=== PATIENT | male | born 1960 | race Asian ===

== ENCOUNTER 2018-05-22 07:31 | Emergency (ER) | payer MEDICAID ==
[~2018-05-22] VITALS: Ht 165.1 cm; Wt 55.0 kg
[~2018-05-22 07:31] MED LIST: FOLI-43 PO; GLIP5TAB12 PO; MULT-1146 MT; PROT40 MT; THIA100T72 PO
[2018-05-22] MEDS ORDERED: SODIUM CHLORIDE 0.9% 1,000 ML IV ONE (08:48)
[2018-05-22] MEDS ORDERED: TETANUS, DIPHTHERIA, PERTUSSIS VAC/PF 0.5ML (>7YR OLD) IM ONE (09:00)
[2018-05-22 09:07] LABS: BASOPHILS % 0.7 % (0.0-2.0); EOSINOPHILS % 1.7 % (0.0-5.0); HEMATOCRIT. 27.9 % (42.0-52.0); HEMOGLOBIN. 9.3 g/dL (14.0-18.0); LYMPHOCYTES % 15.5 % (20.0-50.0); MEAN CORPUSCULAR HEMOGLOBIN 30.9 pg (28.0-32.0); MEAN CORPUSCULAR VOLUME 92.7 fL (80.0-94.0); MEAN PLATELET VOLUME 7.4 fl (7.4-10.4); MONOCYTES % 8.5 % (2.0-8.0); NEUTROPHILS % 73.6 % (40.0-76.0); PLATELET 387 x1000/uL (130-400); RED BLOOD CELL COUNT 3.01 mill/uL (4.7-6.1); RED CELL DISTRIBUTION WIDTH 15.1 % (11.6-14.6)
[2018-05-22 09:11] LABS: CHLORIDE 114 mEq/L (98-107)
[2018-05-22 09:13] LABS: INR 1.5; PROTHROMBIN TIME 15.4 sec (9.4-11.6)
[2018-05-22 09:16] LABS: ETHANOL BLOOD < 10 mg/dL
[2018-05-22 09:44] LABS: CLARITY URINE CLEAR (CLEAR); COLOR URINE DARK YELLOW (YELLOW); KETONES URINE TRACE (NEGATIVE); LEUKOCYTE ESTERASE URINE NEGATIVE (NEGATIVE); NITRITE URINE NEGATIVE (NEGATIVE); OCCULT BLOOD URINE NEGATIVE (NEGATIVE); PROTEIN URINE NEGATIVE (NEGATIVE); SPECIFIC GRAVITY URINE 1.014 (1.005-1.030); UROBILINOGEN URINE 0.2 E.U./dL (0.2-1.0)
[2018-05-22 10:08] LABS: *AMPHETAMINES SCREEN URINE NEGATIVE (NEGATIVE); *BARBITURATES SCREEN URINE NEGATIVE (NEGATIVE); *BENZODIAZEPINES SCREEN URINE PRESUMTIVE POSITIVE (NEGATIVE); *COCAINE SCREEN URINE NEGATIVE (NEGATIVE)
[2018-05-22 10:10] LABS: CANNABINOID URINE SCREEN NEGATIVE (NEGATIVE); METHADONE URINE SCREEN NEGATIVE (NEGATIVE); OPIATES URINE SCREEN PRESUMTIVE POSITIVE (NEGATIVE); PHENCYCLIDINE URINE SCREEN NEGATIVE (NEGATIVE)
[2018-05-22] MEDS ORDERED: CHLORDIAZEPOXIDE 5 MG CAPSULE PO ONE (12:15)
[2018-05-22 13:09] VITALS: BP 112/82
== END 2018-05-22 13:37 | disposition home or self-care (01) ==
LOC: ER 07:50
DX: S01.81XA Laceration without foreign body of other part of head, initial encounter (principal); S01.111A Laceration without foreign body of right eyelid and periocular area, initial encounter; Z87.19 Personal history of other diseases of the digestive system; Z88.8 Allergy status to other drugs, medicaments and biological substances; Z93.3 Colostomy status; Z79.899 Other long term (current) drug therapy; W18.39XA Other fall on same level, initial encounter; Y93.89 Activity, other specified; Y92.89 Other specified places as the place of occurrence of the external cause; Y99.8 Other external cause status
CPT/HCPCS: 12011; 36415; 80053; 80305; 81003; 83690; 85025; 85610; 90471; 90715; 99284; G0482; J7030; Z7610

== ENCOUNTER 2018-08-06 18:00 | Inpatient (IN) | payer MEDICAID ==
[~2018-08-06] VITALS: Ht 167.6 cm; Wt 52.2 kg
[2018-08-06] MEDS ORDERED: ONDANSETRON HCL 4MG/2ML INJ IV STA (18:46)
[2018-08-06] MEDS ORDERED: SODIUM CHLORIDE 0.9% 1,000 ML IV ONE (18:46)
[2018-08-06] MEDS ORDERED: PANTOPRAZOLE SODIUM 40 MG/VIAL IV STA (18:46)
[2018-08-06 19:34] LABS: BASOPHILS % 0.2 % (0.0-2.0); HEMATOCRIT. 22.5 % (42.0-52.0); HEMOGLOBIN. 7.6 g/dL (14.0-18.0); LYMPHOCYTES % 18.1 % (20.0-50.0); MEAN CORPUSCULAR HEMOGLOBIN 32.8 pg (28.0-32.0); MEAN CORPUSCULAR VOLUME 97.3 fL (80.0-94.0); MEAN PLATELET VOLUME 8.3 fl (7.4-10.4); MONOCYTES % 6.7 % (2.0-8.0); PLATELET 177 x1000/uL (130-400); RED BLOOD CELL COUNT 2.31 mill/uL (4.7-6.1); RED CELL DISTRIBUTION WIDTH 17.2 % (11.6-14.6)
[2018-08-06 19:35] LABS: INR 1.4; PARTIAL THROMBOPLASTIN TIME 26.1 sec (23.4-31.0); PROTHROMBIN TIME 13.8 sec (9.1-11.1)
[2018-08-06 19:37] LABS: CHLORIDE 100 mEq/L (98-107); ETHANOL BLOOD < 10 mg/dL
[2018-08-06 19:56] LABS: BG BASE EXCESS -1.3 mmol/L (-2.0-2.0); BG CARBOXYHEMOGLOBIN 1.2 % (0.5-1.5); BG DEOXYHEMOGLOBIN 4.1 % (0.0-5.0); BG FRACTION INSPIRED OXYGEN 21; BG HCO3 ACT 21.8 mmol/L (22.0-26.0); BG METHEMOGLOBIN 0.3 % (0.0-1.5); BG OXYGEN SATURATION 95.8 % (92.0-98.5); BG OXYHEMOGLOBIN 94.4 % (94.0-97.0); BG PCO2 28.9 mmHg (35.0-45.0); BG PH 7.495 (7.350-7.450); BG PO2 85.8 mmHg (75.0-100.0); BG SAMPLE SITE RIGHT RADIAL; BG TOTAL HEMOGLOBIN 6.2 g/dL (12.0-18.0); BG VENT MODE ROOM AIR
[2018-08-06] MEDS ORDERED: PHYTONADIONE 10MG/ML AMP IM ONE (20:00)
[2018-08-06] MEDS ORDERED: OCTREOTIDE 1,000 MCG in SODIUM CHLORIDE 0.9% 100 ML IV ONE (20:00)
[2018-08-06] MEDS ORDERED: OCTREOTIDE ACETATE 50 MCG/ML 1ML IV ONE (20:00)
[2018-08-06] MEDS ORDERED: OCTREOTIDE 1,000 MCG in SODIUM CHLORIDE 0.9% 100 ML IV NR (22:15)
[2018-08-06] MEDS ORDERED: LORAZEPAM 2MG/ML CPJ IV ONE (22:30)
[2018-08-06] MEDS ORDERED: ONDANSETRON HCL 4MG/2ML INJ IV ONE (22:30)
[2018-08-06] MEDS ORDERED: IPRATROPIUM/ALBUTEROL 0.5-3(2.5)MG/3ML NEB INH PRN (23:45)
[2018-08-06] MEDS ORDERED: LORAZEPAM 2MG/ML CPJ IV PRN (23:45)
[2018-08-07] VITALS (13 sets, daily range): BP systolic 86–112; BP diastolic 51–74
[2018-08-07] MEDS ORDERED: PANTOPRAZOLE 80 MG in SODIUM CHLORIDE 0.9% 100 ML IV SCH (03:00)
[2018-08-07] MEDS: PANTOPRAZOLE 80 MG in SODIUM CHLORIDE 0.9% 100 ML IV SCH ×3 (03:11→21:20)
[2018-08-07] MEDS ORDERED: MVI, ADULT NO.1 10 ML, FOLIC ACID 1 MG, THIAMINE HCL 100 MG in SODIUM CHLORIDE 0.9% 1,0... IV NR ×4 (03:30)
[2018-08-07] MEDS: CHLORDIAZEPOXIDE 25MG CAPSULE PO SCH ×3 (05:35→21:20)
[2018-08-07 06:51] LABS: BASOPHILS % 0.2 % (0.0-2.0); EOSINOPHILS % 1.2 % (0.0-5.0); HEMOGLOBIN. 7.3 g/dL (14.0-18.0); LYMPHOCYTES % 27.5 % (20.0-50.0); MEAN CORPUSCULAR HEMOGLOBIN 33.6 pg (28.0-32.0); MEAN PLATELET VOLUME 8.4 fl (7.4-10.4); MONOCYTES % 9.9 % (2.0-8.0); NEUTROPHILS % 61.2 % (40.0-76.0); PLATELET 113 x1000/uL (130-400); RED BLOOD CELL COUNT 2.17 mill/uL (4.7-6.1); RED CELL DISTRIBUTION WIDTH 16.3 % (11.6-14.6)
[2018-08-07 06:59] LABS: HEMATOCRIT. 20.6 % (42.0-52.0)
[2018-08-07 07:40] LABS: CREATINE KINASE MB FRACTION 1.2 ng/mL (0.5-3.6)
[2018-08-07] MEDS ORDERED: MAGNESIUM 2 G PREMIX 50 ML IV ONE (09:15)
[2018-08-07] MEDS ORDERED: DEXTROSE 50% WATER 50ML SYRINGE IV PRN (09:15)
[2018-08-07 10:48] LABS: AMMONIA 86 uMol/L (<32)
[2018-08-07 10:59] LABS: T4 FREE 1.08 ng/dL (0.76-1.46)
[2018-08-07] MEDS ORDERED: MAGNESIUM SULFATE 2 GM in DEXTROSE 5% WATER 50 ML IV NR (11:00)
[2018-08-07] MEDS: OCTREOTIDE 1,000 MCG in SODIUM CHLORIDE 0.9% 100 ML IV SCH (11:12)
[2018-08-07] MEDS: BLOOD SUGAR DIAGNOSTIC STRIP TEST SCH ×3 (11:28→21:18)
[2018-08-07] MEDS: INSULIN LISPRO 100 UNITS/ML SUBCUT SCH ×3 (12:09→21:20)
[2018-08-07] MEDS ORDERED: LIDOCAINE HCL/PF 1% 10 MG/ML 5ML VIAL ONE (15:06)
[2018-08-07] MEDS ORDERED: PROPOFOL 200MG/20ML VIAL IV ONE ×2 (15:06→15:55)
[2018-08-07] MEDS ORDERED: PHENYLEPHRINE HCL 10 MG/ML 1ML (IV VIAL) IV ONE (15:13)
[2018-08-07] MEDS ORDERED: SODIUM CHLORIDE 0.9% 10ML VIAL ONE (15:14)
[2018-08-07 19:34] LABS: HEMATOCRIT 21.8 % (42.0-52.0); HEMOGLOBIN 7.4 g/dL (14.0-18.0)
[2018-08-07 19:44] LABS: CREATINE KINASE MB FRACTION 1.3 ng/mL (0.5-3.6)
[2018-08-07 23:48] LABS: HEMOGLOBIN 6.7 g/dL (14.0-18.0)
[2018-08-08] VITALS (17 sets, daily range): BP systolic 91–117; BP diastolic 54–77
[2018-08-08] MEDS: OCTREOTIDE 1,000 MCG in SODIUM CHLORIDE 0.9% 100 ML IV SCH ×2 (01:25→23:27)
[2018-08-08] MEDS: CHLORDIAZEPOXIDE 25MG CAPSULE PO SCH ×3 (05:47→21:05)
[2018-08-08] MEDS: BLOOD SUGAR DIAGNOSTIC STRIP TEST SCH ×4 (05:53→21:05)
[2018-08-08 06:49] LABS: BASOPHILS % 0.5 % (0.0-2.0); EOSINOPHILS % 5.7 % (0.0-5.0); HEMATOCRIT. 23.3 % (42.0-52.0); HEMOGLOBIN. 8.1 g/dL (14.0-18.0); LYMPHOCYTES % 24.4 % (20.0-50.0); MEAN CORPUSCULAR HEMOGLOBIN 32.8 pg (28.0-32.0); MEAN CORPUSCULAR VOLUME 93.9 fL (80.0-94.0); MEAN PLATELET VOLUME 8.2 fl (7.4-10.4); MONOCYTES % 9.1 % (2.0-8.0); NEUTROPHILS % 60.3 % (40.0-76.0); PLATELET 114 x1000/uL (130-400); RED BLOOD CELL COUNT 2.48 mill/uL (4.7-6.1); RED CELL DISTRIBUTION WIDTH 15.9 % (11.6-14.6)
[2018-08-08 07:08] LABS: AMMONIA 109 uMol/L (<32)
[2018-08-08] MEDS: INSULIN LISPRO 100 UNITS/ML SUBCUT SCH ×4 (07:20→21:00)
[2018-08-08 08:04] LABS: CHLORIDE 106 mEq/L (98-107)
[2018-08-08] MEDS: PROPRANOLOL HCL 10MG TABLET PO SCH (09:00)
[2018-08-08] MEDS: PANTOPRAZOLE 80 MG in SODIUM CHLORIDE 0.9% 100 ML IV SCH ×2 (09:16→19:23)
[2018-08-09] VITALS (9 sets, daily range): BP systolic 93–142; BP diastolic 54–77
[2018-08-09] MEDS ORDERED: POTASSIUM CHLORIDE 20MEQ TABLET SR PO NR (00:15)
[2018-08-09] MEDS: PANTOPRAZOLE 80 MG in SODIUM CHLORIDE 0.9% 100 ML IV SCH (04:39)
[2018-08-09] MEDS: CHLORDIAZEPOXIDE 25MG CAPSULE PO SCH ×2 (05:38→13:05)
[2018-08-09] MEDS: BLOOD SUGAR DIAGNOSTIC STRIP TEST SCH ×2 (06:12→12:27)
[2018-08-09] MEDS: INSULIN LISPRO 100 UNITS/ML SUBCUT SCH ×2 (06:37→12:27)
[2018-08-09 06:41] LABS: BASOPHILS % 0.4 % (0.0-2.0); EOSINOPHILS % 8.3 % (0.0-5.0); HEMATOCRIT. 25.9 % (42.0-52.0); LYMPHOCYTES % 26.5 % (20.0-50.0); MEAN CORPUSCULAR HEMOGLOBIN 33.4 pg (28.0-32.0); MEAN CORPUSCULAR VOLUME 95.9 fL (80.0-94.0); MEAN PLATELET VOLUME 7.7 fl (7.4-10.4); MONOCYTES % 8.7 % (2.0-8.0); NEUTROPHILS % 56.1 % (40.0-76.0); PLATELET 127 x1000/uL (130-400)
[2018-08-09 07:20] LABS: CHLORIDE 109 mEq/L (98-107)
[2018-08-09] MEDS: PROPRANOLOL HCL 10MG TABLET PO SCH (08:19)
[2018-08-09] MEDS ORDERED: PROP10TA10 PO (11:05)
== END 2018-08-09 15:25 | disposition home or self-care (01) | DRG 280 ==
LOC: ER 18:00 → 3WST 19:58 → EDBEDREQ 20:05 → EDBEDREQTM 20:05 → ENRESERV 20:15
PROVIDERS: ADMIT Internal Medicine; ATTEND Internal Medicine
PROC: 30233N1 Transfusion of Nonautologous Red Blood Cells into Peripheral Vein, Percutaneous Approach (ICD-10-PCS; 2018-08-06)
PROC: 06L38CZ Occlusion of Esophageal Vein with Extraluminal Device, Via Natural or Artificial Opening Endoscopic (ICD-10-PCS; principal; 2018-08-07 13:00)
DX: K70.30 Alcoholic cirrhosis of liver without ascites (principal); E43 Unspecified severe protein-calorie malnutrition; I85.11 Secondary esophageal varices with bleeding; D68.9 Coagulation defect, unspecified; K76.6 Portal hypertension; E83.42 Hypomagnesemia; K57.90 Diverticulosis of intestine, part unspecified, without perforation or abscess without bleeding; D53.9 Nutritional anemia, unspecified; E11.9 Type 2 diabetes mellitus without complications; F10.239 Alcohol dependence with withdrawal, unspecified; I10 Essential (primary) hypertension; K64.8 Other hemorrhoids; K31.9 Disease of stomach and duodenum, unspecified; K44.9 Diaphragmatic hernia without obstruction or gangrene; K57.30 Diverticulosis of large intestine without perforation or abscess without bleeding; K76.0 Fatty (change of) liver, not elsewhere classified; N28.9 Disorder of kidney and ureter, unspecified; Z79.84 Long term (current) use of oral hypoglycemic drugs; Z88.8 Allergy status to other drugs, medicaments and biological substances; Z79.899 Other long term (current) drug therapy; Z68.1 Body mass index [BMI] 19.9 or less, adult
CPT/HCPCS: 36415; 36600; 71045; 80048; 80061; 82105; 82140; 82375; 82550; 82553; 82805; 82962; 83540; 83550; 83735; 83880; 84439; 84443; 84481; 84484; 85014; 85018; 85044; 86850; 86900; 86920; 93005; 93970; 96361; 96372; 96374; 96375; 99291; A4216; C1893; C9113; G0482; J1815; J2060; J2354; J2370; J2405; J2704; J3411; J3430; J3475; J3490; J7030; J7040; J7050; J7060; P9016

== ENCOUNTER 2018-12-09 05:11 | Inpatient (IN) | payer MEDICAID ==
[~2018-12-09] VITALS: Ht 170.2 cm; Wt 58.6 kg
[~2018-12-09 05:11] MED LIST changes: +PROP10TA10 PO
[2018-12-09] MEDS ORDERED: SODIUM CHLORIDE 0.9% 1,000 ML IV ONE ×2 (06:18→08:30)
[2018-12-09 06:37] LABS: CHLORIDE 102 mEq/L (98-107)
[2018-12-09 06:41] LABS: ETHANOL BLOOD < 10 mg/dL
[2018-12-09] MEDS ORDERED: DEXTROSE 50% WATER 50ML SYRINGE IV ONE (06:45)
[2018-12-09 06:48] LABS: BASOPHILS % 0.2 % (0.0-2.0); EOSINOPHILS % 1.5 % (0.0-5.0); HEMATOCRIT. 37.7 % (42.0-52.0); HEMOGLOBIN. 12.9 g/dL (14.0-18.0); LYMPHOCYTES % 9.5 % (20.0-50.0); MEAN CORPUSCULAR HEMOGLOBIN 32.6 pg (28.0-32.0); MEAN CORPUSCULAR VOLUME 95.1 fL (80.0-94.0); MEAN PLATELET VOLUME 8.1 fl (7.4-10.4); MONOCYTES % 11.3 % (2.0-8.0); NEUTROPHILS % 77.5 % (40.0-76.0); PLATELET 131 x1000/uL (130-400); RED BLOOD CELL COUNT 3.96 mill/uL (4.7-6.1); RED CELL DISTRIBUTION WIDTH 14.2 % (11.6-14.6)
[2018-12-09 08:51] LABS: CLARITY URINE CLEAR (CLEAR); COLOR URINE YELLOW (YELLOW); KETONES URINE NEGATIVE (NEGATIVE); LEUKOCYTE ESTERASE URINE NEGATIVE (NEGATIVE); NITRITE URINE NEGATIVE (NEGATIVE); OCCULT BLOOD URINE 1+ (NEGATIVE); PROTEIN URINE TRACE (NEGATIVE); SPECIFIC GRAVITY URINE 1.011 (1.005-1.030); UROBILINOGEN URINE 0.2 E.U./dL (0.2-1.0)
[2018-12-09 09:39] LABS: *COCAINE SCREEN URINE NEGATIVE (NEGATIVE); OPIATES URINE SCREEN NEGATIVE (NEGATIVE)
[2018-12-09 09:41] LABS: CANNABINOID URINE SCREEN NEGATIVE (NEGATIVE); METHADONE URINE SCREEN NEGATIVE (NEGATIVE)
[2018-12-09 09:42] LABS: *BENZODIAZEPINES SCREEN URINE PRESUMTIVE POSITIVE (NEGATIVE)
[2018-12-09 09:43] LABS: PHENCYCLIDINE URINE SCREEN NEGATIVE (NEGATIVE)
[2018-12-09 09:45] LABS: *AMPHETAMINES SCREEN URINE NEGATIVE (NEGATIVE); *BARBITURATES SCREEN URINE NEGATIVE (NEGATIVE)
[2018-12-09] MEDS ORDERED: ONDANSETRON HCL 4MG/2ML INJ IV NR (10:15)
[2018-12-09] MEDS ORDERED: LACTULOSE 20G/30ML UDC PO NR ×2 (10:15→22:00)
[2018-12-09] MEDS ORDERED: IPRATROPIUM/ALBUTEROL 0.5-3(2.5)MG/3ML NEB INH PRN (14:30)
[2018-12-09] MEDS ORDERED: DIPHENHYDRAMINE 50MG/ML VIAL IV PRN (14:30)
[2018-12-09 15:17] LABS: PHOSPHORUS 1.9 mg/dL (2.5-4.9)
[2018-12-09] MEDS ORDERED: RIFAXIMIN 550 MG TABLET PO NR (21:30)
[2018-12-09] MEDS ORDERED: MORPHINE SULFATE 4 MG/ML CPJ (NOT FOR IM USE) IV PRN (21:35)
[2018-12-09 22:29] VITALS: BP 151/97
[2018-12-09 23:02] VITALS: BP 124/92
[2018-12-10] VITALS (12 sets, daily range): BP systolic 104–138; BP diastolic 70–95
[2018-12-10] MEDS ORDERED: POTASSIUM CHLORIDE INJ 40 MEQ in DEXT 5% WATER 500 ML IV SCH ×2
[2018-12-10] MEDS ORDERED: FERR325T6 PO (01:41)
[2018-12-10] MEDS ORDERED: HYDR25TA MT (01:41)
[2018-12-10] MEDS ORDERED: FURO20TA4 MT (01:41)
[2018-12-10] MEDS ORDERED: MAGN400T26 MT (01:41)
[2018-12-10] MEDS: LACTULOSE 20G/30ML UDC PO SCH ×3 (06:12→21:49)
[2018-12-10 06:46] LABS: BASOPHILS % 0.4 % (0.0-2.0); EOSINOPHILS % 10.3 % (0.0-5.0); HEMATOCRIT. 37.1 % (42.0-52.0); HEMOGLOBIN. 12.5 g/dL (14.0-18.0); LYMPHOCYTES % 24.1 % (20.0-50.0); MEAN CORPUSCULAR HEMOGLOBIN 32.2 pg (28.0-32.0); MEAN CORPUSCULAR VOLUME 95.8 fL (80.0-94.0); MEAN PLATELET VOLUME 7.8 fl (7.4-10.4); MONOCYTES % 9.8 % (2.0-8.0); NEUTROPHILS % 55.4 % (40.0-76.0); PLATELET 111 x1000/uL (130-400); RED BLOOD CELL COUNT 3.87 mill/uL (4.7-6.1); RED CELL DISTRIBUTION WIDTH 14.3 % (11.6-14.6)
[2018-12-10 07:00] LABS: CHLORIDE 103 mEq/L (98-107)
[2018-12-10 07:08] LABS: LDL CHOLESTEROL 89 mg/dL (5-100)
[2018-12-10 07:10] LABS: HDL CHOLESTEROL 108 mg/dL (40-59)
[2018-12-10] MEDS ORDERED: DEXTROSE 50% WATER 50ML SYRINGE IV PRN (07:30)
[2018-12-10] MEDS: INSULIN LISPRO 100 UNITS/ML SUBCUT SCH ×4 (08:05→20:28)
[2018-12-10] MEDS ORDERED: PNEUMOCOCCAL 23-VAL P-SAC VAC 0.5 ML IM ONE (09:00)
[2018-12-10] MEDS ORDERED: RIFAXIMIN 550 MG TABLET PO SCH (09:00)
[2018-12-10] MEDS: SODIUM CHLORIDE 0.9% 1,000 ML IV SCH (11:06)
[2018-12-10] MEDS: BLOOD SUGAR DIAGNOSTIC STRIP TEST SCH ×3 (11:54→20:20)
[2018-12-10] MEDS ORDERED: SODIUM CHLORIDE 0.9% 250 ML IV ONE (16:30)
[2018-12-10] MEDS: PROPRANOLOL HCL 20MG TABLET PO SCH (20:26)
[2018-12-11] VITALS (9 sets, daily range): BP systolic 110–145; BP diastolic 43–98
[2018-12-11] MEDS: BLOOD SUGAR DIAGNOSTIC STRIP TEST SCH ×2 (06:08→12:00)
[2018-12-11] MEDS: SODIUM CHLORIDE 0.9% 1,000 ML IV SCH (06:08)
[2018-12-11] MEDS: LACTULOSE 20G/30ML UDC PO SCH ×2 (06:08→13:37)
[2018-12-11 07:04] LABS: BASOPHILS % 0.2 % (0.0-2.0); EOSINOPHILS % 7.8 % (0.0-5.0); HEMATOCRIT. 35.7 % (42.0-52.0); HEMOGLOBIN. 12.2 g/dL (14.0-18.0); MEAN CORPUSCULAR HEMOGLOBIN 32.8 pg (28.0-32.0); MEAN CORPUSCULAR VOLUME 95.6 fL (80.0-94.0); MEAN PLATELET VOLUME 7.8 fl (7.4-10.4); PLATELET 122 x1000/uL (130-400); RED BLOOD CELL COUNT 3.74 mill/uL (4.7-6.1); RED CELL DISTRIBUTION WIDTH 13.9 % (11.6-14.6)
[2018-12-11 07:07] LABS: CHLORIDE 106 mEq/L (98-107)
[2018-12-11] MEDS: INSULIN LISPRO 100 UNITS/ML SUBCUT SCH ×2 (07:20→12:00)
[2018-12-11] MEDS: PROPRANOLOL HCL 20MG TABLET PO SCH (08:46)
[2018-12-11] MEDS ORDERED: RIFAXIMIN 550 MG TABLET PO SCH (09:00)
[2018-12-11] MEDS ORDERED: LACT10SO7 PO (13:06)
== END 2018-12-11 14:40 | disposition home or self-care (01) | DRG 279 ==
LOC: ER 06:21 → 3WST 08:26 → EDBEDREQSVC 08:29 → EDBEDREQ 08:29 → ENRESERV 21:11
PROVIDERS: ADMIT Internal Medicine; ATTEND Internal Medicine
DX: K72.90 Hepatic failure, unspecified without coma (principal); G93.41 Metabolic encephalopathy; E72.20 Disorder of urea cycle metabolism, unspecified; E11.649 Type 2 diabetes mellitus with hypoglycemia without coma; K70.30 Alcoholic cirrhosis of liver without ascites; E87.6 Hypokalemia; D64.9 Anemia, unspecified; I10 Essential (primary) hypertension; F10.10 Alcohol abuse, uncomplicated; Z91.19 Patient's noncompliance with other medical treatment and regimen; Z88.9 Allergy status to unspecified drugs, medicaments and biological substances; K57.90 Diverticulosis of intestine, part unspecified, without perforation or abscess without bleeding
CPT/HCPCS: 36415; 80048; 80061; 80076; 80305; 80307; 80329; 82140; 82962; 83735; 84100; 84443; 84484; 90732; 93005; 93306; 93970; 96365; 96375; 97162; 97165; 99291; J1815; J2405; J3480; J7030; J7050; J7060

== ENCOUNTER 2019-08-19 07:11 | Emergency (ER) | payer MEDICAID ==
[~2019-08-19] VITALS: Ht 157.5 cm; Wt 59.0 kg
[~2019-08-19 07:11] MED LIST changes: +FERR325T6 PO; +FURO20TA4 MT; -GLIP5TAB12 PO; +HYDR25TA MT; +LACT10SO7 PO; +MAGN400T26 MT; -MULT-1146 MT; -PROP10TA10 PO; -PROT40 MT; -THIA100T72 PO
[2019-08-19] MEDS ORDERED: FAMOTIDINE 20MG/2ML VIAL IV STA (07:57)
[2019-08-19] MEDS ORDERED: SODIUM CHLORIDE 0.9% 1,000 ML IV ONE ×2 (07:57→11:00)
[2019-08-19 08:20] LABS: BASOPHILS % 0.7 % (0.0-2.0); EOSINOPHILS % 2.7 % (0.0-5.0); HEMATOCRIT. 39.7 % (42.0-52.0); HEMOGLOBIN. 13.6 g/dL (14.0-18.0); LYMPHOCYTES % 25.6 % (20.0-50.0); MEAN CORPUSCULAR HEMOGLOBIN 33.5 pg (28.0-32.0); MEAN PLATELET VOLUME 7.1 fl (7.4-10.4); MONOCYTES % 8.4 % (2.0-8.0); NEUTROPHILS % 62.6 % (40.0-76.0); PLATELET 192 x1000/uL (130-400); RED BLOOD CELL COUNT 4.05 mill/uL (4.7-6.1); RED CELL DISTRIBUTION WIDTH 13.7 % (11.6-14.6)
[2019-08-19 08:22] LABS: CHLORIDE 109 mEq/L (98-107)
[2019-08-19 08:24] LABS: INR 1.1; PROTHROMBIN TIME 11.5 sec (9.6-11.0)
[2019-08-19 08:35] LABS: CLARITY URINE CLEAR (CLEAR); COLOR URINE DARK YELLOW (YELLOW); KETONES URINE 1+ (NEGATIVE); LEUKOCYTE ESTERASE URINE NEGATIVE (NEGATIVE); NITRITE URINE NEGATIVE (NEGATIVE); OCCULT BLOOD URINE TRACE (NEGATIVE); PROTEIN URINE 2+ (NEGATIVE); SPECIFIC GRAVITY URINE 1.024 (1.005-1.030)
[2019-08-19] MEDS ORDERED: POTASSIUM CHLORIDE 20MEQ TABLET SR PO ONE (08:45)
[2019-08-19 08:57] LABS: *AMPHETAMINES SCREEN URINE NEGATIVE (NEGATIVE)
[2019-08-19 08:58] LABS: *BARBITURATES SCREEN URINE NEGATIVE (NEGATIVE); *BENZODIAZEPINES SCREEN URINE NEGATIVE (NEGATIVE); *COCAINE SCREEN URINE NEGATIVE (NEGATIVE); CANNABINOID URINE SCREEN NEGATIVE (NEGATIVE); METHADONE URINE SCREEN NEGATIVE (NEGATIVE); OPIATES URINE SCREEN NEGATIVE (NEGATIVE); PHENCYCLIDINE URINE SCREEN NEGATIVE (NEGATIVE)
[2019-08-19] MEDS ORDERED: CHLORDIAZEPOXIDE 25MG CAPSULE PO ONE (11:00)
[2019-08-19] MEDS ORDERED: LORAZEPAM 2MG/ML CPJ IV ONE (11:00)
[2019-08-19 12:53] VITALS: BP 126/76
== END 2019-08-19 12:55 | disposition home or self-care (01) ==
LOC: ER 07:11
DX: F10.229 Alcohol dependence with intoxication, unspecified (principal); Y90.6 Blood alcohol level of 120-199 mg/100 ml; K70.9 Alcoholic liver disease, unspecified; E86.0 Dehydration; E87.6 Hypokalemia; R00.0 Tachycardia, unspecified
CPT/HCPCS: 36415; 71045; 80053; 80305; 80320; 81003; 83690; 85025; 85610; 93005; 96361; 96374; 96375; 99284; J2060; J3490; J7030; Z7610; G0480

== ENCOUNTER 2019-09-17 18:51 | Emergency (ER) | payer MEDICAID ==
[~2019-09-17] VITALS: Ht 160 cm; Wt 57.0 kg
[2019-09-17 23:29] LABS: CHLORIDE 108 mEq/L (98-107)
[2019-09-17 23:30] LABS: BASOPHILS % 0.6 % (0.0-2.0); EOSINOPHILS % 0.5 % (0.0-5.0); HEMATOCRIT. 31.7 % (42.0-52.0); HEMOGLOBIN. 10.9 g/dL (14.0-18.0); MEAN CORPUSCULAR HEMOGLOBIN 33.8 pg (28.0-32.0); MEAN CORPUSCULAR VOLUME 97.9 fL (80.0-94.0); MEAN PLATELET VOLUME 7.3 fl (7.4-10.4); MONOCYTES % 5.2 % (2.0-8.0); NEUTROPHILS % 71.7 % (40.0-76.0); PLATELET 193 x1000/uL (130-400); RED BLOOD CELL COUNT 3.24 mill/uL (4.7-6.1); RED CELL DISTRIBUTION WIDTH 15.8 % (11.6-14.6)
[2019-09-17 23:31] LABS: INR 1.1; PARTIAL THROMBOPLASTIN TIME 28.7 sec (23.4-31.0); PROTHROMBIN TIME 11.2 sec (9.6-11.0)
[2019-09-17 23:32] LABS: ETHANOL BLOOD 188 mg/dL
[2019-09-18 00:25] LABS: CLARITY URINE CLEAR (CLEAR); COLOR URINE YELLOW (YELLOW); KETONES URINE TRACE (NEGATIVE); LEUKOCYTE ESTERASE URINE NEGATIVE (NEGATIVE); NITRITE URINE NEGATIVE (NEGATIVE); OCCULT BLOOD URINE NEGATIVE (NEGATIVE); PH URINE 5.5 (4.5-8.0); PROTEIN URINE NEGATIVE (NEGATIVE); SPECIFIC GRAVITY URINE 1.014 (1.005-1.030); UROBILINOGEN URINE 0.2 E.U./dL (0.2-1.0)
[2019-09-18] MEDS ORDERED: IBUPROFEN 600MG TABLET PO SCH (00:30)
[2019-09-18 00:59] VITALS: BP 144/83
[2019-09-18 01:00] LABS: *AMPHETAMINES SCREEN URINE NEGATIVE (NEGATIVE); *BARBITURATES SCREEN URINE NEGATIVE (NEGATIVE); *BENZODIAZEPINES SCREEN URINE NEGATIVE (NEGATIVE); *COCAINE SCREEN URINE NEGATIVE (NEGATIVE); CANNABINOID URINE SCREEN PRESUMTIVE POSITIVE (NEGATIVE); METHADONE URINE SCREEN NEGATIVE (NEGATIVE); OPIATES URINE SCREEN NEGATIVE (NEGATIVE); PHENCYCLIDINE URINE SCREEN NEGATIVE (NEGATIVE)
== END 2019-09-18 01:30 | disposition home or self-care (01) ==
LOC: ER 18:51
DX: D35.02 Benign neoplasm of left adrenal gland (principal); K57.90 Diverticulosis of intestine, part unspecified, without perforation or abscess without bleeding; K40.90 Unilateral inguinal hernia, without obstruction or gangrene, not specified as recurrent; F10.229 Alcohol dependence with intoxication, unspecified; Y90.6 Blood alcohol level of 120-199 mg/100 ml; K70.30 Alcoholic cirrhosis of liver without ascites; E11.9 Type 2 diabetes mellitus without complications; F12.90 Cannabis use, unspecified, uncomplicated; Z79.899 Other long term (current) drug therapy
CPT/HCPCS: 36415; 74176; 80305; 80320; 81003; 86850; 86900; 93005; 99284; G0480

== ENCOUNTER 2020-12-29 17:10 | Inpatient (IN) | payer MEDICAID ==
[~2020-12-29] VITALS: Ht 162.6 cm; Wt 59.0 kg
[2020-12-29 18:30] LABS: BASOPHILS % 0.5 % (0.0-2.0); EOSINOPHILS % 6.8 % (0.0-5.0); HEMATOCRIT. 36.4 % (42.0-52.0); HEMOGLOBIN. 12.7 g/dL (14.0-18.0); LYMPHOCYTES % 35.1 % (20.0-50.0); MEAN CORPUSCULAR HEMOGLOBIN 33.6 pg (28.0-32.0); MEAN CORPUSCULAR VOLUME 96.6 fL (80.0-94.0); MEAN PLATELET VOLUME 7.6 fl (7.4-10.4); NEUTROPHILS % 44.6 % (40.0-76.0); PLATELET 168 x1000/uL (130-400); RED BLOOD CELL COUNT 3.77 mill/uL (4.7-6.1); RED CELL DISTRIBUTION WIDTH 13.7 % (11.6-14.6)
[2020-12-29 18:41] LABS: CHLORIDE 105 mEq/L (98-107)
[2020-12-29] MEDS ORDERED: SODIUM CHLORIDE 0.9% 1,000 ML IV ONE (18:45)
[2020-12-29 18:46] LABS: INR 1.1; PROTHROMBIN TIME 11.9 sec (9.6-11.0)
[2020-12-29] MEDS ORDERED: POTASSIUM CHLORIDE 20MEQ TABLET SR PO ONE (20:00)
[2020-12-30] VITALS (7 sets, daily range): BP systolic 107–150; BP diastolic 77–100
[2020-12-30] MEDS ORDERED: HYDROCODONE/ACETAMINOPHEN 5/325MG TABLET PO PRN (01:15)
[2020-12-30] MEDS ORDERED: DEXTROSE 50% WATER 50ML SYRINGE IV PRN (01:15)
[2020-12-30 07:18] LABS: BASOPHILS % 0.4 % (0.0-2.0); EOSINOPHILS % 6.1 % (0.0-5.0); HEMOGLOBIN. 12.4 g/dL (14.0-18.0); LYMPHOCYTES % 19.8 % (20.0-50.0); MEAN CORPUSCULAR HEMOGLOBIN 33.6 pg (28.0-32.0); MEAN CORPUSCULAR VOLUME 97.2 fL (80.0-94.0); MEAN PLATELET VOLUME 7.6 fl (7.4-10.4); MONOCYTES % 12.5 % (2.0-8.0); NEUTROPHILS % 61.2 % (40.0-76.0); PLATELET 140 x1000/uL (130-400); RED CELL DISTRIBUTION WIDTH 13.9 % (11.6-14.6)
[2020-12-30 07:24] LABS: CHLORIDE 105 mEq/L (98-107)
[2020-12-30] MEDS ORDERED: INFLUENZA VACCINE 05/PF 0.5 ML VIAL IM ONE (08:00)
[2020-12-30] MEDS: AMLODIPINE 10MG TABLET PO SCH (10:19)
[2020-12-30] MEDS: BLOOD SUGAR DIAGNOSTIC STRIP TEST SCH ×3 (12:46→20:00)
[2020-12-30] MEDS ORDERED: METOPROLOL TARTRATE 25MG TABLET PO NR (13:15)
[2020-12-30] MEDS ORDERED: ACETAMINOPHEN 325MG TABLET PO SCH (14:15)
[2020-12-30] MEDS: PANTOPRAZOLE SODIUM 40 MG/VIAL IV SCH (14:19)
[2020-12-30] MEDS: THIAMINE HCL 100MG TABLET PO SCH (14:19)
[2020-12-30] MEDS: INSULIN LISPRO 100 UNITS/ML SUBCUT SCH ×4 (14:37→21:10)
[2020-12-30] MEDS: METOPROLOL TARTRATE 25MG TABLET PO SCH (20:38)
[2020-12-30] MEDS: LACTULOSE 20G/30ML UDC PO SCH (21:07)
[2020-12-30] MEDS ORDERED: IOHEXOL-300 100 ML BOTTLE ONE ×2 (22:19→22:20)
[2020-12-31] VITALS: BP 105/70
[2020-12-31 04:00] VITALS: BP 102/75
[2020-12-31] MEDS: BLOOD SUGAR DIAGNOSTIC STRIP TEST SCH ×3 (05:22→17:09)
[2020-12-31] MEDS: LACTULOSE 20G/30ML UDC PO SCH ×2 (05:23→13:12)
[2020-12-31] MEDS: INSULIN LISPRO 100 UNITS/ML SUBCUT SCH ×3 (05:26→17:40)
[2020-12-31 06:53] LABS: HEMATOCRIT 38.3 % (42.0-52.0); HEMOGLOBIN 13.2 g/dL (14.0-18.0)
[2020-12-31 07:33] LABS: FERRITIN 422 ng/mL (22-322)
[2020-12-31 08:00] VITALS: BP 114/84
[2020-12-31 08:02] LABS: FOLIC ACID (FOLATE) SERUM >20 ng/mL ng/mL (>5.38)
[2020-12-31 08:13] LABS: VITAMIN B12 SERUM 345 pg/mL (211-911)
[2020-12-31] MEDS: AMLODIPINE 10MG TABLET PO SCH (10:28)
[2020-12-31] MEDS: THIAMINE HCL 100MG TABLET PO SCH (10:28)
[2020-12-31] MEDS: METOPROLOL TARTRATE 25MG TABLET PO SCH (10:28)
[2020-12-31] MEDS: PANTOPRAZOLE SODIUM 40 MG/VIAL IV SCH (10:28)
[2020-12-31 12:00] VITALS: BP 131/87
[2020-12-31 16:00] VITALS: BP 148/80
[2020-12-31 18:43] VITALS: BP 128/76
== END 2020-12-31 19:10 | disposition home or self-care (01) | DRG 254 ==
LOC: ER 17:10 → 8WST 22:51 → EDBEDREQ 22:53 → EDBEDREQTM 22:53 → ENRESERV 23:26
PROVIDERS: ADMIT Internal Medicine; ATTEND Internal Medicine
DX: K92.1 Melena (principal); E11.9 Type 2 diabetes mellitus without complications; F10.10 Alcohol abuse, uncomplicated; K70.30 Alcoholic cirrhosis of liver without ascites; I10 Essential (primary) hypertension; K72.90 Hepatic failure, unspecified without coma; K57.30 Diverticulosis of large intestine without perforation or abscess without bleeding; K44.9 Diaphragmatic hernia without obstruction or gangrene; K64.9 Unspecified hemorrhoids; E72.20 Disorder of urea cycle metabolism, unspecified; J44.9 Chronic obstructive pulmonary disease, unspecified; K31.89 Other diseases of stomach and duodenum; G31.84 Mild cognitive impairment of uncertain or unknown etiology; D53.9 Nutritional anemia, unspecified; N20.0 Calculus of kidney; K76.6 Portal hypertension; Z87.442 Personal history of urinary calculi; Z86.010 Personal history of colon polyps; Z88.8 Allergy status to other drugs, medicaments and biological substances; Z87.19 Personal history of other diseases of the digestive system; Z79.899 Other long term (current) drug therapy; Z71.41 Alcohol abuse counseling and surveillance of alcoholic
CPT/HCPCS: 36415; 74177; 76700; 80048; 80053; 80076; 82140; 82270; 82607; 82728; 82746; 82962; 83036; 83540; 83550; 85014; 85018; 85025; 86850; 86900; 87015; 87045; 87427; 87449; 87493; 90686; 93005; 99285; C9113; J1815; J7030; Q9967

== ENCOUNTER 2022-09-07 17:18 | Inpatient (IN) | payer MEDICAID, OTHER ==
[~2022-09-07] VITALS: Ht 170.2 cm; Wt 60.3 kg
[~2022-09-07 17:18] MED LIST changes: -FERR325T6 PO; -FURO20TA4 MT; -HYDR25TA MT; -MAGN400T26 MT; +OMEP40CA20 MT
[2022-09-07] MEDS ORDERED: ACETAMINOPHEN 325MG TABLET PO ONE (19:00)
[2022-09-07 19:35] LABS: BASOPHILS % 0.2 % (0.0-2.0); EOSINOPHILS % 0.5 % (0.0-5.0); HEMATOCRIT. 35.6 % (42.0-52.0); HEMOGLOBIN. 11.8 g/dL (14.0-18.0); LYMPHOCYTES % 9.4 % (20.0-50.0); MEAN CORPUSCULAR HEMOGLOBIN 32.5 pg (28.0-32.0); MEAN CORPUSCULAR VOLUME 98.2 fL (80.0-94.0); MEAN PLATELET VOLUME 7.8 fl (7.4-10.4); MONOCYTES % 8.5 % (2.0-8.0); NEUTROPHILS % 81.4 % (40.0-76.0); PLATELET 191 x1000/uL (130-400); RED BLOOD CELL COUNT 3.63 mill/uL (4.7-6.1); RED CELL DISTRIBUTION WIDTH 15.2 % (11.6-14.6)
[2022-09-07 19:49] LABS: CHLORIDE 104 mEq/L (98-107)
[2022-09-07 20:00] LABS: ETHANOL BLOOD 240 mg/dL
[2022-09-07] MEDS ORDERED: SODIUM CHLORIDE 0.9% 1,000 ML IV ONE (20:30)
[2022-09-08] MEDS ORDERED: KETOROLAC 30MG/ML VIAL IV ONE (01:45)
[2022-09-08 03:34] VITALS: BP 105/66
[2022-09-08] MEDS ORDERED: GLIP5TAB12 PO (03:42)
[2022-09-08] MEDS ORDERED: FERR325T30 PO (03:42)
[2022-09-08] MEDS ORDERED: FURO20TA4 PO (03:42)
[2022-09-08] MEDS ORDERED: MEMA5TAB42 PO (03:42)
[2022-09-08 08:00] VITALS: BP 124/79
[2022-09-08 12:00] VITALS: BP 107/64
[2022-09-08 16:00] VITALS: BP 116/61
[2022-09-08] MEDS ORDERED: DEXTROSE 50% WATER 50ML SYRINGE IV PRN ×2 (16:15)
[2022-09-08] MEDS ORDERED: KETOROLAC 10MG TABLET PO PRN (16:15)
[2022-09-08] MEDS ORDERED: ONDANSETRON HCL 4MG/2ML INJ IV PRN (16:15)
[2022-09-08] MEDS ORDERED: MAGNESIUM/ALUMINUM HYDROXIDE/SIMETHICONE 30ML UDC PO PRN (16:15)
[2022-09-08] MEDS ORDERED: CLONIDINE 0.1MG TABLET PO PRN (16:15)
[2022-09-08] MEDS ORDERED: HYDROCODONE/ACETAMINOPHEN 5/325MG TABLET PO PRN (16:15)
[2022-09-08] MEDS: TRAMADOL 50MG TABLET PO PRN (17:20)
[2022-09-08] MEDS: BLOOD SUGAR DIAGNOSTIC STRIP TEST SCH ×2 (17:40→20:42)
[2022-09-08] MEDS: INSULIN LISPRO 100 UNITS/ML SUBCUT SCH ×2 (18:10→20:46)
[2022-09-08 20:00] VITALS: BP 112/65
[2022-09-09 00:05] VITALS: BP 111/63
[2022-09-09] MEDS: TRAMADOL 50MG TABLET PO PRN ×2 (03:47→17:11)
[2022-09-09 04:00] VITALS: BP 109/66
[2022-09-09] MEDS: BLOOD SUGAR DIAGNOSTIC STRIP TEST SCH ×4 (05:23→21:08)
[2022-09-09] MEDS: INSULIN LISPRO 100 UNITS/ML SUBCUT SCH ×4 (05:23→21:00)
[2022-09-09 06:44] LABS: HEMATOCRIT. 25.7 % (42.0-52.0); HEMOGLOBIN. 8.9 g/dL (14.0-18.0); MEAN CORPUSCULAR HEMOGLOBIN 33.7 pg (28.0-32.0); MEAN CORPUSCULAR VOLUME 97.4 fL (80.0-94.0); PLATELET 122 x1000/uL (130-400); RED BLOOD CELL COUNT 2.64 mill/uL (4.7-6.1); RED CELL DISTRIBUTION WIDTH 14.9 % (11.6-14.6)
[2022-09-09 07:16] LABS: CHLORIDE 104 mEq/L (98-107)
[2022-09-09 07:29] LABS: HDL CHOLESTEROL 47 mg/dL (40-59); LDL CHOLESTEROL 62 mg/dL (5-100); PHOSPHORUS 1.9 mg/dL (2.5-4.9); T4 FREE 1.11 ng/dL (0.76-1.46)
[2022-09-09 08:00] VITALS: BP 113/80
[2022-09-09 12:00] VITALS: BP 119/73
[2022-09-09 13:37] LABS: PLATELET ESTIMATE NORMAL
[2022-09-09 16:00] VITALS: BP 105/72
[2022-09-09 20:00] VITALS: BP 120/80
[2022-09-09] MEDS ORDERED: ZOLPIDEM TARTRATE 5MG TABLET PO PRN (21:00)
[2022-09-09] MEDS: ACETAMINOPHEN 325MG TABLET PO PRN (21:01)
[2022-09-10] VITALS (7 sets, daily range): BP systolic 100–131; BP diastolic 65–83
[2022-09-10] MEDS: BLOOD SUGAR DIAGNOSTIC STRIP TEST SCH ×4 (06:02→21:00)
[2022-09-10 07:49] LABS: HEMATOCRIT. 25.8 % (42.0-52.0); HEMOGLOBIN. 8.9 g/dL (14.0-18.0); MEAN CORPUSCULAR HEMOGLOBIN 33.7 pg (28.0-32.0); MEAN CORPUSCULAR VOLUME 97.8 fL (80.0-94.0); MEAN PLATELET VOLUME 8.1 fl (7.4-10.4); PLATELET 143 x1000/uL (130-400); RED BLOOD CELL COUNT 2.64 mill/uL (4.7-6.1); RED CELL DISTRIBUTION WIDTH 14.9 % (11.6-14.6)
[2022-09-10] MEDS: INSULIN LISPRO 100 UNITS/ML SUBCUT SCH ×4 (08:14→21:00)
[2022-09-10 10:38] LABS: CHLORIDE 101 mEq/L (98-107)
[2022-09-10 11:00] LABS: PHOSPHORUS 2.3 mg/dL (2.5-4.9)
[2022-09-10] MEDS: TRAMADOL 50MG TABLET PO PRN ×2 (14:43→22:26)
[2022-09-10 14:47] LABS: PLATELET ESTIMATE NORMAL
[2022-09-10] MEDS ORDERED: NALOXONE HCL 0.4MG/ML VIAL IV PRN (23:15)
[2022-09-11] VITALS: BP 103/62
[2022-09-11 04:00] VITALS: BP 113/74
[2022-09-11] MEDS: INSULIN LISPRO 100 UNITS/ML SUBCUT SCH ×4 (05:27→22:50)
[2022-09-11] MEDS: BLOOD SUGAR DIAGNOSTIC STRIP TEST SCH ×4 (05:27→21:00)
[2022-09-11] MEDS: TRAMADOL 50MG TABLET PO PRN (05:33)
[2022-09-11 08:30] VITALS: BP 115/85
[2022-09-11 12:40] VITALS: BP 120/83
[2022-09-11 16:30] VITALS: BP 117/66
[2022-09-11 19:43] LABS: CLARITY URINE CLEAR (CLEAR); COLOR URINE DARK YELLOW (YELLOW); KETONES URINE TRACE (NEGATIVE); LEUKOCYTE ESTERASE URINE 1+ (NEGATIVE); NITRITE URINE NEGATIVE (NEGATIVE); OCCULT BLOOD URINE NEGATIVE (NEGATIVE); PH URINE 6.5 (4.5-8.0); PROTEIN URINE NEGATIVE (NEGATIVE); SPECIFIC GRAVITY URINE 1.018 (1.005-1.030)
[2022-09-11 20:00] VITALS: BP 106/71
[2022-09-12] VITALS: BP 114/62
[2022-09-12 04:00] VITALS: BP 118/79
[2022-09-12] MEDS: TRAMADOL 50MG TABLET PO PRN ×3 (04:16→13:28)
[2022-09-12 08:00] VITALS: BP 116/78
[2022-09-12] MEDS: INSULIN LISPRO 100 UNITS/ML SUBCUT SCH ×3 (08:10→18:10)
[2022-09-12] MEDS: BLOOD SUGAR DIAGNOSTIC STRIP TEST SCH ×3 (08:21→17:40)
[2022-09-12 12:00] VITALS: BP 119/77
[2022-09-12] MEDS: ACETAMINOPHEN 325MG TABLET PO PRN (13:28)
[2022-09-12] MEDS ORDERED: METOPROLOL TARTRATE 25MG TABLET PO ONE (13:30)
[2022-09-12 16:00] VITALS: BP 120/72
[2022-09-12 17:09] VITALS: BP 135/82
[2022-09-12] MEDS ORDERED: METOPROLOL TARTRATE 25MG TABLET PO SCH (21:00)
== END 2022-09-12 17:30 | disposition home health service (06) | DRG 342 ==
LOC: ER 17:18 → 7WST 20:45
PROVIDERS: ADMIT Internal Medicine; ATTEND Internal Medicine
DX: S42.202A Unspecified fracture of upper end of left humerus, initial encounter for closed fracture (principal); G92.8 Other toxic encephalopathy; N17.9 Acute kidney failure, unspecified; R18.8 Other ascites; E83.39 Other disorders of phosphorus metabolism; F03.90 Unspecified dementia, unspecified severity, without behavioral disturbance, psychotic disturbance, mood disturbance, and anxiety; E11.9 Type 2 diabetes mellitus without complications; E83.42 Hypomagnesemia; E87.6 Hypokalemia; R74.01 Elevation of levels of liver transaminase levels; F10.229 Alcohol dependence with intoxication, unspecified; Z83.3 Family history of diabetes mellitus; Z88.8 Allergy status to other drugs, medicaments and biological substances; W01.0XXA Fall on same level from slipping, tripping and stumbling without subsequent striking against object, initial encounter; Y93.89 Activity, other specified; Y92.512 Supermarket, store or market as the place of occurrence of the external cause; Y99.8 Other external cause status
CPT/HCPCS: 36415; 70486; 71045; 73060; 73090; 80048; 80053; 80061; 80076; 80320; 81003; 82140; 82962; 83036; 83735; 83880; 84100; 84145; 84439; 84443; 84484; 85025; 93005; 93306; 93970; 97162; 97165; 97530; 97535; 99285; J1815; J1885; J7030; G0480

== ENCOUNTER 2022-11-07 17:22 | Emergency (ER) | payer MEDICAID ==
[~2022-11-07] VITALS: Ht 160 cm; Wt 57.0 kg
[~2022-11-07 17:22] MED LIST changes: +FERR325T30 PO; +FURO20TA4 PO; +GLIP5TAB12 PO; +MEMA5TAB42 PO
[2022-11-07 17:41] VITALS: BP 107/66
== END 2022-11-07 20:27 | disposition left against medical advice (07) ==
LOC: ER 17:29
DX: Z53.21 Procedure and treatment not carried out due to patient leaving prior to being seen by health care provider (principal)

== ENCOUNTER 2024-01-16 15:23 | Emergency (ER) | payer MEDICAID ==
[~2024-01-16] VITALS: Ht 165.1 cm; Wt 54.4 kg
[~2024-01-16 15:23] MED LIST changes: -GLIP5TAB12 PO; +GLIP5TAB22 PO; +PROP10TA10 MT
[2024-01-16 15:45] VITALS: O2SAT 99
[2024-01-16] MEDS: LIDOCAINE HCL/PF 1% 10 MG/ML 5ML VIAL INFIL ONE (17:15)
[2024-01-16] MEDS: BACITRACIN ZINC OINT UDPKT TOP ONE (17:15)
[2024-01-16] MEDS: HYDROCODONE/ACETAMINOPHEN 5/325MG TABLET PO ONE (17:15)
[2024-01-16] MEDS: TETANUS, DIPHTHERIA, PERTUSSIS VAC/PF 0.5ML (>10YR OLD) IM ONE (17:19)
[2024-01-16] MEDS ORDERED: AMOX1TAB16 MT (17:35)
[2024-01-16] MEDS ORDERED: BO1 TP (17:50)
[2024-01-16 18:31] VITALS: BP 148/78; PULSE 88; RESP 18; TEMP 98.7
== END 2024-01-16 18:21 | disposition home or self-care (01) ==
LOC: ER 15:54
DX: S61.213A Laceration without foreign body of left middle finger without damage to nail, initial encounter (principal); W54.0XXA Bitten by dog, initial encounter; Y93.89 Activity, other specified; Y92.89 Other specified places as the place of occurrence of the external cause; Y99.8 Other external cause status
CPT/HCPCS: 73140; 90715; 12004; 90471; 99283; J3490; Z7610 ×2

== ENCOUNTER 2024-06-28 07:13 | Emergency (ER) | payer MEDICAID ==
[~2024-06-28] VITALS: Ht 170.2 cm; Wt 70.0 kg
[~2024-06-28 07:13] MED LIST changes: +AMOX1TAB16 MT; +BO1 TP; +MEMA5TAB16 PO; -MEMA5TAB42 PO
[2024-06-28 07:26] VITALS: BP 152/96; PULSE 95; RESP 18; TEMP 98.5; O2SAT 99
[2024-06-28 08:37] LABS: CHLORIDE 104 mEq/L (98-107); POTASSIUM 3.6 mEq/L (3.5-5.1); SODIUM 137 mEq/L (136-145)
[2024-06-28 08:38] LABS: CALCIUM 9.1 mg/dL (8.7-10.4); CARBON DIOXIDE 24 mEq/L (21-32)
[2024-06-28 08:43] LABS: GLUCOSE 165 mg/dL (70-105); UREA NITROGEN BLOOD 7 mg/dL (9-23)
[2024-06-28 08:45] LABS: ALANINE AMINOTRANSFERASE 28 IU/L (10-49); ASPARTATE AMINOTRANSFERASE 63 IU/L (<34); BILIRUBIN DIRECT 0.5 mg/dL (<=3.0); BILIRUBIN TOTAL 1.3 mg/dL (0.1-1.0); PROTEIN TOTAL 8.5 g/dL (6.0-8.3)
[2024-06-28 09:10] LABS: BASOPHILS % 0.4 % (0.0-2.0); EOSINOPHILS % 4.3 % (0.0-5.0); HEMATOCRIT. 37.8 % (42.0-52.0); HEMOGLOBIN. 12.7 g/dL (14.0-18.0); LYMPHOCYTES % 20.2 % (20.0-50.0); MEAN CORPUSCULAR HEMOGLOBIN 31.2 pg (28.0-32.0); MEAN CORPUSCULAR HGB CONC 33.6 g/dL (31.0-37.0); MEAN CORPUSCULAR VOLUME 92.7 fL (80.0-94.0); MEAN PLATELET VOLUME 7.8 fl (7.4-10.4); MONOCYTES % 11.5 % (2.0-8.0); NEUTROPHILS % 63.6 % (40.0-76.0); PLATELET 169 x1000/uL (130-400); RED BLOOD CELL COUNT 4.08 mill/uL (4.7-6.1); RED CELL DISTRIBUTION WIDTH 17.3 % (11.6-14.6); WHITE BLOOD COUNT 6.1 x1000/uL (4.5-11.0)
[2024-06-28 09:39] LABS: TROPONIN I HIGH SENSITIVITY 43 ng/L (3.0-53)
[2024-06-28 12:33] LABS: CLARITY URINE CLEAR (CLEAR); COLOR URINE YELLOW (YELLOW); GLUCOSE URINE NEGATIVE (NEGATIVE); KETONES URINE NEGATIVE (NEGATIVE); LEUKOCYTE ESTERASE URINE TRACE (NEGATIVE); NITRITE URINE NEGATIVE (NEGATIVE); OCCULT BLOOD URINE NEGATIVE (NEGATIVE); PH URINE 7.5 (4.5-8.0); PROTEIN URINE 1+ (NEGATIVE); SPECIFIC GRAVITY URINE 1.014 (1.005-1.030)
[2024-06-28 12:54] LABS: BACTERIA URINE NONE SEEN; RBC URINE 0-2 /hpf (0-2); SQUAMOUS EPITHELIAL CELL URINE RARE /lpf (RARE/1+); WBC URINE 0-2 /hpf (0-2); YEAST URINE NONE SEEN
== END 2024-06-28 15:15 | disposition home or self-care (01) ==
LOC: ER 07:13
DX: R10.9 Unspecified abdominal pain (principal); R11.2 Nausea with vomiting, unspecified; F10.20 Alcohol dependence, uncomplicated; E11.9 Type 2 diabetes mellitus without complications; Z88.8 Allergy status to other drugs, medicaments and biological substances; Z79.899 Other long term (current) drug therapy; Y90.0 Blood alcohol level of less than 20 mg/100 ml
CPT/HCPCS: 36415; 74176; 80048; 80076; 80320; 81003; 83880; 84484; 85025; 93005; 99284; G0480

== ENCOUNTER 2024-10-09 08:22 | Inpatient (IN) | payer MEDICAID, OTHER ==
[~2024-10-09] VITALS: Ht 162.6 cm; Wt 63.5 kg
[2024-10-09] MEDS ORDERED: LACTATED RINGERS 1,000 ML IV SCH (09:00)
[2024-10-09] MEDS: METOCLOPRAMIDE HCL 10MG/2ML VIAL IV ONE (09:00)
[2024-10-09] MEDS ORDERED: OCTREOTIDE 1,000 MCG in SODIUM CHLORIDE 0.9% 98 ML IV ONE (09:00)
[2024-10-09] MEDS: PANTOPRAZOLE SODIUM 40 MG/VIAL IV ONE (09:00)
[2024-10-09] MEDS: DIAZEPAM 5 MG/ML 2ML SYR IV ONE (09:15)
[2024-10-09 09:23] LABS: BASOPHILS % 0.2 % (0.0-2.0); EOSINOPHILS % 0.4 % (0.0-5.0); HEMOGLOBIN. 10.8 g/dL (14.0-18.0); LYMPHOCYTES % 11.3 % (20.0-50.0); MEAN CORPUSCULAR HEMOGLOBIN 31.1 pg (28.0-32.0); MEAN CORPUSCULAR HGB CONC 32.8 g/dL (31.0-37.0); MEAN CORPUSCULAR VOLUME 94.9 fL (80.0-94.0); MEAN PLATELET VOLUME 8.2 fl (7.4-10.4); NEUTROPHILS % 81.1 % (40.0-76.0); PLATELET 177 x1000/uL (130-400); RED BLOOD CELL COUNT 3.48 mill/uL (4.7-6.1); RED CELL DISTRIBUTION WIDTH 17.3 % (11.6-14.6)
[2024-10-09 09:32] LABS: CHLORIDE 102 mEq/L (98-107); POTASSIUM 3.9 mEq/L (3.5-5.1); SODIUM 141 mEq/L (136-145)
[2024-10-09 09:33] LABS: CALCIUM 8.9 mg/dL (8.7-10.4); CARBON DIOXIDE 24 mEq/L (21-32)
[2024-10-09 09:38] LABS: CREATININE 1.3 mg/dL (0.6-1.3); GLUCOSE 208 mg/dL (70-105); UREA NITROGEN BLOOD 33 mg/dL (9-23)
[2024-10-09 09:58] LABS: TROPONIN I HIGH SENSITIVITY 80 ng/L (3.0-53)
[2024-10-09] MEDS: MAGNESIUM 2 G PREMIX 50 ML IV ONE (10:21)
[2024-10-09] MEDS ORDERED: ONDANSETRON HCL 4MG/2ML INJ IV PRN (10:30)
[2024-10-09] MEDS ORDERED: CLONIDINE 0.1MG TABLET PO PRN (10:30)
[2024-10-09] MEDS ORDERED: LORAZEPAM 2MG/ML INJ IV PRN (10:30)
[2024-10-09 10:35] LABS: ALANINE AMINOTRANSFERASE 29 IU/L (10-49)
[2024-10-09 10:36] LABS: ALBUMIN 3.5 g/dL (3.2-4.8); ASPARTATE AMINOTRANSFERASE 64 IU/L (<34); BILIRUBIN DIRECT 0.9 mg/dL (<=3.0); BILIRUBIN TOTAL 2.1 mg/dL (0.1-1.0); PROTEIN TOTAL 7.3 g/dL (6.0-8.3)
[2024-10-09] MEDS: CEFTRIAXONE 1GM/50ML 50 ML IV ONE (10:54)
[2024-10-09] MEDS: SODIUM CHLORIDE 0.9% 1,000 ML IV SCH (11:24)
[2024-10-09] MEDS: OCTREOTIDE ACETATE 50 MCG/ML 1ML IV NR (13:12)
[2024-10-09] MEDS: OCTREOTIDE 1,000 MCG in SODIUM CHLORIDE 0.9% 98 ML IV ONE (13:18)
[2024-10-09] MEDS: PANTOPRAZOLE 80 MG in SODIUM CHLORIDE 0.9% 100 ML IV SCH (13:46)
[2024-10-09 13:53] LABS: HEMATOCRIT 27.6 % (42.0-52.0); HEMOGLOBIN 9.1 g/dL (14.0-18.0)
[2024-10-09 14:00] VITALS: BP 114/78; PULSE 119; RESP 16; TEMP 36.72516; O2SAT 98
[2024-10-09 15:58] VITALS: BP 114/78; PULSE 120; RESP 15; TEMP 36.696
[2024-10-09 16:00] VITALS: BP 119/79; PULSE 115; RESP 15; TEMP 36.72516; O2SAT 100
[2024-10-09 17:05] LABS: CLARITY URINE CLEAR (CLEAR); COLOR URINE YELLOW (YELLOW); GLUCOSE URINE NEGATIVE (NEGATIVE); KETONES URINE 1+ (NEGATIVE); LEUKOCYTE ESTERASE URINE NEGATIVE (NEGATIVE); NITRITE URINE NEGATIVE (NEGATIVE); OCCULT BLOOD URINE NEGATIVE (NEGATIVE); PROTEIN URINE NEGATIVE (NEGATIVE); SPECIFIC GRAVITY URINE 1.017 (1.005-1.030)
[2024-10-09 17:20] LABS: *AMPHETAMINES SCREEN URINE NEGATIVE (NEGATIVE); *BARBITURATES SCREEN URINE NEGATIVE (NEGATIVE); *BENZODIAZEPINES SCREEN URINE PRESUMPTIVE POSITIVE (NEGATIVE); *COCAINE SCREEN URINE NEGATIVE (NEGATIVE); CANNABINOID URINE SCREEN NEGATIVE (NEGATIVE); ECSTASY MDMA SCREEN URINE NEGATIVE (NEGATIVE); METHADONE URINE SCREEN NEGATIVE (NEGATIVE); OPIATES URINE SCREEN NEGATIVE (NEGATIVE); PHENCYCLIDINE URINE SCREEN NEGATIVE (NEGATIVE)
[2024-10-09 18:00] VITALS: BP 118/77; PULSE 112; RESP 16; O2SAT 97
[2024-10-09 20:49] VITALS: BP 132/82; PULSE 119; RESP 14; TEMP 37.16964; O2SAT 95
[2024-10-09] MEDS: CARVEDILOL 3.125 MG TABLET PO SCH (20:58)
[2024-10-09] MEDS ORDERED: ZOLPIDEM TARTRATE 5MG TABLET PO PRN (21:00)
[2024-10-09 21:55] LABS: HEMATOCRIT 24.2 % (42.0-52.0); HEMOGLOBIN 8.1 g/dL (14.0-18.0)
[2024-10-09 22:00] VITALS: BP 120/72; PULSE 112; RESP 19; O2SAT 97
[2024-10-09] MEDS: CHLORDIAZEPOXIDE 25MG CAPSULE PO SCH (22:05)
[2024-10-09 22:36] LABS: CREATINE KINASE MB FRACTION 2.9 ng/mL (0.5-3.6)
[2024-10-10] VITALS (17 sets, daily range): BP systolic 91–140; BP diastolic 66–93; PULSE 93–108; RESP 15–24; TEMP 36.3918–37.16964; O2SAT 96–100
[2024-10-10] MEDS: PANTOPRAZOLE 80 MG in SODIUM CHLORIDE 0.9% 100 ML IV SCH (01:26)
[2024-10-10 02:04] LABS: HEMATOCRIT 21.1 % (42.0-52.0); HEMOGLOBIN 7.1 g/dL (14.0-18.0)
[2024-10-10 11:47] LABS: BASOPHILS % 0.2 % (0.0-2.0); EOSINOPHILS % 8.3 % (0.0-5.0); HEMATOCRIT. 26.4 % (42.0-52.0); HEMOGLOBIN. 8.7 g/dL (14.0-18.0); LYMPHOCYTES % 19.5 % (20.0-50.0); MEAN CORPUSCULAR HEMOGLOBIN 31.1 pg (28.0-32.0); MEAN CORPUSCULAR HGB CONC 32.9 g/dL (31.0-37.0); MEAN CORPUSCULAR VOLUME 94.7 fL (80.0-94.0); MEAN PLATELET VOLUME 8.3 fl (7.4-10.4); PLATELET 107 x1000/uL (130-400); RED BLOOD CELL COUNT 2.79 mill/uL (4.7-6.1); WHITE BLOOD COUNT 6.7 x1000/uL (4.5-11.0)
[2024-10-10 11:53] LABS: CARBON DIOXIDE 23 mEq/L (21-32); CHLORIDE 104 mEq/L (98-107); POTASSIUM 3.5 mEq/L (3.5-5.1); SODIUM 137 mEq/L (136-145)
[2024-10-10 11:54] LABS: CALCIUM 7.5 mg/dL (8.7-10.4)
[2024-10-10 11:58] LABS: IRON 220 ug/dL (65-175)
[2024-10-10 11:59] LABS: GLUCOSE 232 mg/dL (70-105); UREA NITROGEN BLOOD 17 mg/dL (9-23)
[2024-10-10 12:00] LABS: ALANINE AMINOTRANSFERASE 24 IU/L (10-49); ASPARTATE AMINOTRANSFERASE 72 IU/L (<34); TOTAL IRON BINDING CAPACITY 233 ug/dl (250-425)
[2024-10-10 12:01] LABS: ALBUMIN 2.6 g/dL (3.2-4.8); BILIRUBIN DIRECT 0.7 mg/dL (<=3.0); BILIRUBIN TOTAL 1.6 mg/dL (0.1-1.0); PROTEIN TOTAL 5.6 g/dL (6.0-8.3)
[2024-10-10 12:09] LABS: FERRITIN 87 ng/mL (22-322)
[2024-10-10 12:10] LABS: FOLIC ACID (FOLATE) SERUM > 20.00 ng/mL (>5.38); VITAMIN B12 SERUM 465 pg/mL (211-911)
[2024-10-10 13:57] LABS: AMMONIA 117 uMol/L (<32)
[2024-10-10] MEDS: RIFAXIMIN 550 MG TABLET PO SCH (15:04)
[2024-10-10] MEDS: LACTULOSE 20G/30ML UDC PO SCH (15:04)
[2024-10-11] VITALS (12 sets, daily range): BP systolic 91–138; BP diastolic 70–105; PULSE 82–103; RESP 12–25; TEMP 36.6696–37.61412; O2SAT 81–100
[2024-10-11 08:58] LABS: AMMONIA 76 uMol/L (<32)
[2024-10-11 10:59] LABS: CARBON DIOXIDE 23 mEq/L (21-32); CHLORIDE 106 mEq/L (98-107); POTASSIUM 3.2 mEq/L (3.5-5.1); SODIUM 138 mEq/L (136-145)
[2024-10-11 11:00] LABS: CALCIUM 7.6 mg/dL (8.7-10.4)
[2024-10-11 11:04] LABS: CREATININE 0.9 mg/dL (0.6-1.3)
[2024-10-11 11:05] LABS: GLUCOSE 208 mg/dL (70-105); UREA NITROGEN BLOOD 10 mg/dL (9-23)
[2024-10-11 11:10] LABS: BASOPHILS % 0.2 % (0.0-2.0); EOSINOPHILS % 10.6 % (0.0-5.0); HEMATOCRIT. 27.3 % (42.0-52.0); LYMPHOCYTES % 17.8 % (20.0-50.0); MEAN CORPUSCULAR HEMOGLOBIN 31.6 pg (28.0-32.0); MEAN CORPUSCULAR HGB CONC 32.8 g/dL (31.0-37.0); MEAN CORPUSCULAR VOLUME 96.4 fL (80.0-94.0); MONOCYTES % 9.9 % (2.0-8.0); NEUTROPHILS % 61.5 % (40.0-76.0); PLATELET 121 x1000/uL (130-400); RED BLOOD CELL COUNT 2.83 mill/uL (4.7-6.1); WHITE BLOOD COUNT 5.9 x1000/uL (4.5-11.0)
[2024-10-11] MEDS ORDERED: POTASSIUM CHLORIDE 40 MEQ in DEXT 5% WATER 230 ML IV ONE (13:45)
[2024-10-11] MEDS: KCL 20MEQ/100ML X 2 FOR TOTAL KCL 40MEQ/200ML IV SCH (16:59)
[2024-10-11] MEDS: PANTOPRAZOLE SODIUM 40 MG/VIAL IV SCH (21:13)
[2024-10-11] MEDS: OCTREOTIDE 1,000 MCG in SODIUM CHLORIDE 0.9% 98 ML IV SCH (21:13)
[2024-10-12] VITALS (12 sets, daily range): BP systolic 98–132; BP diastolic 53–81; PULSE 81–96; RESP 9–23; TEMP 36.33624–37.05852; O2SAT 95–100
[2024-10-12 22:16] LABS: CHLORIDE 110 mEq/L (98-107); POTASSIUM 3.3 mEq/L (3.5-5.1); SODIUM 139 mEq/L (136-145)
[2024-10-12 22:17] LABS: CALCIUM 7.6 mg/dL (8.7-10.4); CARBON DIOXIDE 20 mEq/L (21-32)
[2024-10-12 22:18] LABS: BASOPHILS % 0.2 % (0.0-2.0); EOSINOPHILS % 10.7 % (0.0-5.0); HEMATOCRIT. 24.8 % (42.0-52.0); HEMOGLOBIN. 8.1 g/dL (14.0-18.0); LYMPHOCYTES % 15.7 % (20.0-50.0); MEAN CORPUSCULAR HEMOGLOBIN 31.4 pg (28.0-32.0); MEAN CORPUSCULAR HGB CONC 32.6 g/dL (31.0-37.0); MEAN CORPUSCULAR VOLUME 96.4 fL (80.0-94.0); MEAN PLATELET VOLUME 8.5 fl (7.4-10.4); MONOCYTES % 11.6 % (2.0-8.0); NEUTROPHILS % 61.8 % (40.0-76.0); PLATELET 126 x1000/uL (130-400); RED BLOOD CELL COUNT 2.58 mill/uL (4.7-6.1); RED CELL DISTRIBUTION WIDTH 17.4 % (11.6-14.6); WHITE BLOOD COUNT 5.8 x1000/uL (4.5-11.0)
[2024-10-12 22:21] LABS: INR 1.2; PROTHROMBIN TIME 13.7 sec (9.6-11.0)
[2024-10-12 22:22] LABS: GLUCOSE 224 mg/dL (70-105)
[2024-10-12 22:23] LABS: UREA NITROGEN BLOOD 6 mg/dL (9-23)
[2024-10-12 22:24] LABS: AMMONIA 70 uMol/L (<32)
[2024-10-12 22:44] LABS: HEPATITIS B SURFACE ANTIGEN NEGATIVE (Negative)
[2024-10-12 23:05] LABS: HEPATITIS A AB IGM NEGATIVE (Negative)
[2024-10-12 23:06] LABS: HEPATITIS B CORE AB IGM NEGATIVE (Negative); HEPATITIS C AB NON REACTIVE (Neg) (Negative)
[2024-10-13] VITALS (12 sets, daily range): BP systolic 89–121; BP diastolic 55–81; PULSE 86–95; RESP 11–21; TEMP 36.50292–39.22536; O2SAT 97–100
[2024-10-13 04:55] LABS: CHLORIDE 112 mEq/L (98-107); POTASSIUM 3.3 mEq/L (3.5-5.1); SODIUM 141 mEq/L (136-145)
[2024-10-13 04:56] LABS: BASOPHILS % 0.1 % (0.0-2.0); CARBON DIOXIDE 20 mEq/L (21-32); EOSINOPHILS % 10.7 % (0.0-5.0); HEMATOCRIT. 25.6 % (42.0-52.0); HEMOGLOBIN. 8.2 g/dL (14.0-18.0); LYMPHOCYTES % 16.9 % (20.0-50.0); MEAN CORPUSCULAR HEMOGLOBIN 31.5 pg (28.0-32.0); MEAN CORPUSCULAR HGB CONC 32.1 g/dL (31.0-37.0); MEAN CORPUSCULAR VOLUME 98.2 fL (80.0-94.0); MEAN PLATELET VOLUME 8.2 fl (7.4-10.4); MONOCYTES % 12.2 % (2.0-8.0); NEUTROPHILS % 60.1 % (40.0-76.0); PLATELET 113 x1000/uL (130-400); RED BLOOD CELL COUNT 2.61 mill/uL (4.7-6.1); RED CELL DISTRIBUTION WIDTH 17.8 % (11.6-14.6); WHITE BLOOD COUNT 6.4 x1000/uL (4.5-11.0)
[2024-10-13 04:57] LABS: CALCIUM 7.5 mg/dL (8.7-10.4)
[2024-10-13 05:01] LABS: CREATININE 0.9 mg/dL (0.6-1.3); GLUCOSE 142 mg/dL (70-105)
[2024-10-13 05:03] LABS: AMMONIA 57 uMol/L (<32)
[2024-10-13 05:04] LABS: BILIRUBIN TOTAL 1.4 mg/dL (0.1-1.0); INR 1.3
[2024-10-13 05:11] LABS: UREA NITROGEN BLOOD < 5 mg/dL (9-23)
[2024-10-13] MEDS: MAGNESIUM 4 G PREMIX 100 ML IV NR (06:37)
[2024-10-13] MEDS: ACETAMINOPHEN 325MG TABLET PO PRN (14:06)
[2024-10-14] VITALS (11 sets, daily range): BP systolic 94–129; BP diastolic 43–88; PULSE 67–94; RESP 9–21; TEMP 36.114–36.83628; O2SAT 97–100
[2024-10-14] MEDS: PIPERACILLIN/TAZO 3.375G/50ML 50 ML IV SCH (02:50)
[2024-10-14] MEDS: VANCOMYCIN 1.25GM PMX (XELLIA) 250 ML IV NR (03:02)
[2024-10-14] MEDS: MAGNESIUM 4 G PREMIX 100 ML IV NR (04:14)
[2024-10-14 04:42] LABS: CHLORIDE 112 mEq/L (98-107); POTASSIUM 3.2 mEq/L (3.5-5.1); SODIUM 142 mEq/L (136-145)
[2024-10-14 04:43] LABS: CARBON DIOXIDE 20 mEq/L (21-32)
[2024-10-14 04:44] LABS: CALCIUM 7.2 mg/dL (8.7-10.4)
[2024-10-14 04:48] LABS: GLUCOSE 162 mg/dL (70-105)
[2024-10-14 04:49] LABS: UREA NITROGEN BLOOD 7 mg/dL (9-23)
[2024-10-14 04:50] LABS: BASOPHILS % 0.1 % (0.0-2.0); EOSINOPHILS % 0.8 % (0.0-5.0); HEMATOCRIT. 24.6 % (42.0-52.0); HEMOGLOBIN. 7.9 g/dL (14.0-18.0); MEAN CORPUSCULAR HEMOGLOBIN 31.5 pg (28.0-32.0); MEAN CORPUSCULAR HGB CONC 32.1 g/dL (31.0-37.0); MEAN CORPUSCULAR VOLUME 98.3 fL (80.0-94.0); MEAN PLATELET VOLUME 8.3 fl (7.4-10.4); MONOCYTES % 8.9 % (2.0-8.0); NEUTROPHILS % 84.2 % (40.0-76.0); PLATELET 105 x1000/uL (130-400); RED BLOOD CELL COUNT 2.51 mill/uL (4.7-6.1); RED CELL DISTRIBUTION WIDTH 17.6 % (11.6-14.6); WHITE BLOOD COUNT 12.7 x1000/uL (4.5-11.0)
[2024-10-14 05:12] LABS: DIFFERENTIAL COMMENT 1
[2024-10-14] MEDS: BLOOD SUGAR DIAGNOSTIC STRIP TEST SCH (07:00)
[2024-10-14] MEDS ORDERED: DEXTROSE 50% WATER 50ML SYRINGE IV PRN (07:00)
[2024-10-14] MEDS: POTASSIUM CHLORIDE 20MEQ TABLET SR PO NR (07:41)
[2024-10-14] MEDS: INSULIN LISPRO 100 UNITS/ML SUBCUT SCH (07:57)
[2024-10-14 10:21] LABS: PHOSPHORUS 3.5 mg/dL (2.5-4.9)
[2024-10-14] MEDS ORDERED: VANCOMYCIN 1GM/200ML PMX (BAXTER) IV SCH (15:00)
[2024-10-14] MEDS: VANCOMYCIN 750MG/150ML (BAXTER) IV SCH (17:44)
[2024-10-15] VITALS (12 sets, daily range): BP systolic 87–134; BP diastolic 52–91; PULSE 83–102; RESP 10–25; TEMP 36.3918–37.11408; O2SAT 98–99
[2024-10-15 13:40] LABS: HEMATOCRIT. 26.1 % (42.0-52.0); HEMOGLOBIN. 8.5 g/dL (14.0-18.0); MEAN CORPUSCULAR HEMOGLOBIN 31.5 pg (28.0-32.0); MEAN CORPUSCULAR HGB CONC 32.5 g/dL (31.0-37.0); MEAN CORPUSCULAR VOLUME 97.1 fL (80.0-94.0); MEAN PLATELET VOLUME 8.4 fl (7.4-10.4); PLATELET 130 x1000/uL (130-400); RED BLOOD CELL COUNT 2.68 mill/uL (4.7-6.1); RED CELL DISTRIBUTION WIDTH 18.2 % (11.6-14.6); WHITE BLOOD COUNT 6.4 x1000/uL (4.5-11.0)
[2024-10-15 13:57] LABS: DIFFERENTIAL COMMENT 1
[2024-10-15 19:59] LABS: PLATELET ESTIMATE NORMAL
[2024-10-16] VITALS (12 sets, daily range): BP systolic 96–136; BP diastolic 57–84; PULSE 76–96; RESP 11–23; TEMP 36.16956–37.2252; O2SAT 95–99
[2024-10-16 03:30] LABS: CHLORIDE 114 mEq/L (98-107); POTASSIUM 3.9 mEq/L (3.5-5.1); SODIUM 143 mEq/L (136-145)
[2024-10-16 03:31] LABS: CALCIUM 7.7 mg/dL (8.7-10.4); CARBON DIOXIDE 20 mEq/L (21-32)
[2024-10-16 03:36] LABS: CREATININE 1.2 mg/dL (0.6-1.3); GLUCOSE 156 mg/dL (70-105); UREA NITROGEN BLOOD 5 mg/dL (9-23)
[2024-10-16 10:09] LABS: HEMATOCRIT. 23.9 % (42.0-52.0); HEMOGLOBIN. 7.7 g/dL (14.0-18.0); MEAN CORPUSCULAR HEMOGLOBIN 31.5 pg (28.0-32.0); MEAN CORPUSCULAR HGB CONC 32.3 g/dL (31.0-37.0); MEAN CORPUSCULAR VOLUME 97.3 fL (80.0-94.0); MEAN PLATELET VOLUME 8.6 fl (7.4-10.4); PLATELET 125 x1000/uL (130-400); RED BLOOD CELL COUNT 2.45 mill/uL (4.7-6.1); RED CELL DISTRIBUTION WIDTH 18.5 % (11.6-14.6); WHITE BLOOD COUNT 5.6 x1000/uL (4.5-11.0)
[2024-10-16 10:10] LABS: DIFFERENTIAL COMMENT 1
[2024-10-16 17:12] LABS: ANISOCYTOSIS 1+; HYPOCHROMASIA 1+; PLATELET ESTIMATE SLIGHTLY DECREASED
[2024-10-17] VITALS (12 sets, daily range): BP systolic 109–148; BP diastolic 68–99; PULSE 74–94; RESP 11–20; TEMP 36.50292–37.16964; O2SAT 95–100
[2024-10-17 09:18] LABS: HEMATOCRIT. 24.2 % (42.0-52.0); MEAN CORPUSCULAR HEMOGLOBIN 31.9 pg (28.0-32.0); MEAN CORPUSCULAR VOLUME 96.6 fL (80.0-94.0); MEAN PLATELET VOLUME 8.4 fl (7.4-10.4); PLATELET 128 x1000/uL (130-400); RED CELL DISTRIBUTION WIDTH 17.5 % (11.6-14.6); WHITE BLOOD COUNT 5.3 x1000/uL (4.5-11.0)
[2024-10-17 09:34] LABS: DIFFERENTIAL COMMENT 1
[2024-10-17] MEDS: MVI, ADULT NO.1 10 ML, FOLIC ACID 1 MG, THIAMINE HCL 100 MG in SODIUM CHLORIDE 0.9% 1,0... IV ONE (12:20)
[2024-10-17 16:31] LABS: ANISOCYTOSIS 1+; HYPOCHROMASIA 1+; PLATELET ESTIMATE SLIGHTLY DECREASED
[2024-10-18] VITALS (12 sets, daily range): BP systolic 97–134; BP diastolic 63–95; PULSE 66–86; RESP 12–22; TEMP 36.50292–37.16964; O2SAT 95–99
[2024-10-18 07:36] LABS: HEMATOCRIT. 25.3 % (42.0-52.0); HEMOGLOBIN. 8.3 g/dL (14.0-18.0); MEAN CORPUSCULAR HEMOGLOBIN 31.2 pg (28.0-32.0); MEAN CORPUSCULAR HGB CONC 32.8 g/dL (31.0-37.0); MEAN CORPUSCULAR VOLUME 95.4 fL (80.0-94.0); MEAN PLATELET VOLUME 8.7 fl (7.4-10.4); PLATELET 148 x1000/uL (130-400); RED BLOOD CELL COUNT 2.66 mill/uL (4.7-6.1); RED CELL DISTRIBUTION WIDTH 17.4 % (11.6-14.6); WHITE BLOOD COUNT 5.4 x1000/uL (4.5-11.0)
[2024-10-18 07:47] LABS: INR 1.2; PROTHROMBIN TIME 13.7 sec (9.6-11.0)
[2024-10-18 07:53] LABS: CHLORIDE 108 mEq/L (98-107); POTASSIUM 3.7 mEq/L (3.5-5.1); SODIUM 142 mEq/L (136-145)
[2024-10-18 07:54] LABS: CALCIUM 8.4 mg/dL (8.7-10.4); CARBON DIOXIDE 25 mEq/L (21-32)
[2024-10-18 07:59] LABS: CREATININE 1.1 mg/dL (0.6-1.3); GLUCOSE 142 mg/dL (70-105); UREA NITROGEN BLOOD 7 mg/dL (9-23)
[2024-10-18 08:00] LABS: ALANINE AMINOTRANSFERASE 27 IU/L (10-49)
[2024-10-18 08:01] LABS: ALBUMIN 2.6 g/dL (3.2-4.8); ASPARTATE AMINOTRANSFERASE 33 IU/L (<34); BILIRUBIN TOTAL 1.1 mg/dL (0.1-1.0); DIFFERENTIAL COMMENT 1; PROTEIN TOTAL 5.5 g/dL (6.0-8.3)
[2024-10-18 12:12] LABS: ANISOCYTOSIS 1+; PLATELET ESTIMATE NORMAL
[2024-10-18] MEDS: OCTREOTIDE 1,000 MCG in SODIUM CHLORIDE 0.9% 98 ML IV SCH (19:05)
[2024-10-19] VITALS (11 sets, daily range): BP systolic 97–130; BP diastolic 50–95; PULSE 68–84; RESP 10–18; TEMP 36.44736–37.05852; O2SAT 95–100
[2024-10-19 04:02] LABS: BASOPHILS % 0.8 % (0.0-2.0); EOSINOPHILS % 10.8 % (0.0-5.0); HEMATOCRIT. 24.3 % (42.0-52.0); MEAN CORPUSCULAR HEMOGLOBIN 31.1 pg (28.0-32.0); MEAN CORPUSCULAR HGB CONC 32.9 g/dL (31.0-37.0); MEAN CORPUSCULAR VOLUME 94.8 fL (80.0-94.0); MEAN PLATELET VOLUME 8.3 fl (7.4-10.4); MONOCYTES % 14.2 % (2.0-8.0); NEUTROPHILS % 51.2 % (40.0-76.0); PLATELET 158 x1000/uL (130-400); RED BLOOD CELL COUNT 2.56 mill/uL (4.7-6.1); RED CELL DISTRIBUTION WIDTH 17.8 % (11.6-14.6); WHITE BLOOD COUNT 5.1 x1000/uL (4.5-11.0)
[2024-10-19 04:09] LABS: INR 1.3; PROTHROMBIN TIME 13.9 sec (9.6-11.0)
[2024-10-19 04:16] LABS: CHLORIDE 111 mEq/L (98-107); POTASSIUM 3.2 mEq/L (3.5-5.1); SODIUM 143 mEq/L (136-145)
[2024-10-19 04:17] LABS: CARBON DIOXIDE 24 mEq/L (21-32)
[2024-10-19 04:22] LABS: GLUCOSE 142 mg/dL (70-105); UREA NITROGEN BLOOD 6 mg/dL (9-23)
[2024-10-19 04:24] LABS: AMMONIA 46 uMol/L (<32)
[2024-10-19] MEDS: KCL 20MEQ/100ML PREMIX 100 ML IV SCH (12:07)
[2024-10-19] MEDS ORDERED: PROPOFOL 200MG/20ML VIAL IV ONE (12:52)
[2024-10-19] MEDS ORDERED: LIDOCAINE HCL 1% 20ML VIAL ONE (12:52)
[2024-10-19] MEDS: MAGNESIUM 2 G PREMIX 50 ML IV SCH (15:27)
[2024-10-19] MEDS: SUCRALFATE 1G TABLET PO SCH (21:09)
[2024-10-20] VITALS (9 sets, daily range): BP systolic 104–135; BP diastolic 65–95; PULSE 70–96; RESP 9–26; TEMP 36.33624–36.6696; O2SAT 99
[2024-10-20 09:28] LABS: CHLORIDE 108 mEq/L (98-107); POTASSIUM 3.7 mEq/L (3.5-5.1); SODIUM 141 mEq/L (136-145)
[2024-10-20 09:29] LABS: CALCIUM 8.5 mg/dL (8.7-10.4); CARBON DIOXIDE 25 mEq/L (21-32)
[2024-10-20 09:34] LABS: CREATININE 0.9 mg/dL (0.6-1.3); GLUCOSE 133 mg/dL (70-105); UREA NITROGEN BLOOD 6 mg/dL (9-23)
[2024-10-20] MEDS ORDERED: PROT40 MT (15:02)
[2024-10-20] MEDS ORDERED: SUCR1TAB PO (15:02)
[2024-10-20] MEDS ORDERED: LACT10SO7 PO (15:02)
[2024-10-20] MEDS ORDERED: COR3 PO (15:02)
== END 2024-10-20 19:30 | disposition home or self-care (01) | DRG 720 ==
LOC: ER 08:31 → EDBEDREQ 09:02 → EDBEDREQTM 10:13 → 5EST 14:50
PROVIDERS: ADMIT Internal Medicine; ATTEND Internal Medicine
PROC: 30233N1 Transfusion of Nonautologous Red Blood Cells into Peripheral Vein, Percutaneous Approach (ICD-10-PCS; principal; 2024-10-10)
PROC: 0DB78ZX Excision of Stomach, Pylorus, Via Natural or Artificial Opening Endoscopic, Diagnostic (ICD-10-PCS; 2024-10-19)
PROC: 06L38ZZ Occlusion of Esophageal Vein, Via Natural or Artificial Opening Endoscopic (ICD-10-PCS; 2024-10-19)
DX: A41.9 Sepsis, unspecified organism (principal); G93.41 Metabolic encephalopathy; I85.11 Secondary esophageal varices with bleeding; I21.A1 Myocardial infarction type 2; E46 Unspecified protein-calorie malnutrition; K76.6 Portal hypertension; K70.30 Alcoholic cirrhosis of liver without ascites; E11.36 Type 2 diabetes mellitus with diabetic cataract; D69.6 Thrombocytopenia, unspecified; K76.82 Hepatic encephalopathy; D62 Acute posthemorrhagic anemia; E11.65 Type 2 diabetes mellitus with hyperglycemia; F03.90 Unspecified dementia, unspecified severity, without behavioral disturbance, psychotic disturbance, mood disturbance, and anxiety; Z68.24 Body mass index [BMI] 24.0-24.9, adult; F10.239 Alcohol dependence with withdrawal, unspecified; R00.0 Tachycardia, unspecified; Z20.822 Contact with and (suspected) exposure to COVID-19; K29.70 Gastritis, unspecified, without bleeding; K31.89 Other diseases of stomach and duodenum; K40.90 Unilateral inguinal hernia, without obstruction or gangrene, not specified as recurrent; K57.30 Diverticulosis of large intestine without perforation or abscess without bleeding; F41.9 Anxiety disorder, unspecified; Z79.899 Other long term (current) drug therapy
CPT/HCPCS: 36415; 71045; 76700; 80048; 80053; 80076; 80202; 80305; 81003; 82105; 82140; 82247; 82270; 82550; 82553; 82607; 82728; 82746; 82962; 83036; 83540; 83550; 83605; 83735; 84100; 84145; 84484; 85014; 85018; 85025; 85044; 86705; 86709; 86850; 86900; 86920; 87340; 87426; 87804; 88305; 93005; 93970; 99291; A4606; J0696; J1815; J2354; J2470; J2543; J2704; J2765; J3370; J3411; J3475; J3480; J3490; J7030; J7050; P9016

== ENCOUNTER 2025-01-09 13:52 | Inpatient (IN) | payer MEDICAID, OTHER ==
[2025-01-09] VITALS (14 sets, daily range): BP systolic 109–157; BP diastolic 64–106; PULSE 91–116; RESP 13–23; TEMP 36.6; O2SAT 94–100
[~2025-01-09] VITALS: Ht 170.2 cm; Wt 54.9 kg
[~2025-01-09 13:52] MED LIST changes: -AMOX1TAB16 MT; -BO1 TP; +COR3 PO; -OMEP40CA20 MT; -PROP10TA10 MT; +PROT40 MT; +SUCR1TAB PO
[2025-01-09 16:06] LABS: BASOPHILS % 0.4 % (0.0-2.0); DIFFERENTIAL COMMENT 0; EOSINOPHILS % 0.3 % (0.0-5.0); HEMATOCRIT. 39.7 % (42.0-52.0); HEMOGLOBIN. 12.7 g/dL (14.0-18.0); LYMPHOCYTES % 9.8 % (20.0-50.0); MEAN CORPUSCULAR HEMOGLOBIN 29.7 pg (28.0-32.0); MEAN CORPUSCULAR HGB CONC 32.1 g/dL (31.0-37.0); MEAN CORPUSCULAR VOLUME 92.5 fL (80.0-94.0); MONOCYTES % 9.5 % (2.0-8.0); PLATELET 117 x1000/uL (130-400); RED BLOOD CELL COUNT 4.29 mill/uL (4.7-6.1); RED CELL DISTRIBUTION WIDTH 17.7 % (11.6-14.6); WHITE BLOOD COUNT 5.5 x1000/uL (4.5-11.0)
[2025-01-09 16:13] LABS: CHLORIDE 104 mEq/L (98-107); POTASSIUM 3.4 mEq/L (3.5-5.1); SODIUM 142 mEq/L (136-145)
[2025-01-09 16:14] LABS: CALCIUM 8.8 mg/dL (8.7-10.4); CARBON DIOXIDE 25 mEq/L (21-32)
[2025-01-09 16:19] LABS: CREATININE 0.9 mg/dL (0.6-1.3); GLUCOSE 181 mg/dL (70-105); UREA NITROGEN BLOOD 8 mg/dL (9-23)
[2025-01-09 16:20] LABS: AMMONIA 19 uMol/L (<32)
[2025-01-09 16:21] LABS: ALANINE AMINOTRANSFERASE 29 IU/L (10-49); ALBUMIN 3.5 g/dL (3.2-4.8); ASPARTATE AMINOTRANSFERASE 57 IU/L (<34); BILIRUBIN TOTAL 1.8 mg/dL (0.1-1.0); PHOSPHORUS 1.9 mg/dL (2.5-4.9); TROPONIN I HIGH SENSITIVITY 63 ng/L (3.0-53)
[2025-01-09 16:22] LABS: ETHANOL BLOOD < 10 mg/dL (<10)
[2025-01-09] MEDS ORDERED: NICARDIPINE 50 MG in SODIUM CHLORIDE 0.9% 230 ML IV PRN (16:30)
[2025-01-09] MEDS ORDERED: LEVETIRACETAM 500MG PREMIX 100 ML IV ONE (16:30)
[2025-01-09 16:32] LABS: INR 1.2; PARTIAL THROMBOPLASTIN TIME 27.1 sec (23.4-31.0); PROTHROMBIN TIME 12.4 sec (9.6-11.0)
[2025-01-09] MEDS ORDERED: NICARDIPINE 40MG/200ML PREMIX 200 ML IV PRN (17:15)
[2025-01-09] MEDS: MANNITOL 12.5G (25%) VIAL 50ML IV ONE (17:30)
[2025-01-09] MEDS: DEXAMETHASONE 10 MG/ML VIAL IV ONE (17:30)
[2025-01-09] MEDS: LEVETIRACETAM 1000MG PREMIX 100 ML IV SCH (17:30)
[2025-01-09] MEDS ORDERED: ONDANSETRON HCL 4MG/2ML INJ IV PRN (17:45)
[2025-01-09] MEDS ORDERED: IPRATROPIUM/ALBUTEROL 0.5-3(2.5)MG/3ML NEB NEB PRN (17:45)
[2025-01-09] MEDS: MAGNESIUM 2 G PREMIX 50 ML IV ONE (18:02)
[2025-01-09] MEDS ORDERED: DEXTROSE 50% WATER 50ML SYRINGE IV PRN ×2 (18:45)
[2025-01-09] MEDS: DEXAMETHASONE 4MG/ML 1ML VIAL IV SCH (19:52)
[2025-01-09] MEDS ORDERED: FOLIC ACID 1 MG, THIAMINE HCL 100 MG, MVI, ADULT NO.1 10 ML in DEXTROSE 5% WATER 1,000 ML IV SCH (20:00)
[2025-01-09] MEDS ORDERED: DEXT 5%/LACTATED RINGERS 1,000 ML IV SCH (20:15)
[2025-01-09] MEDS ORDERED: BLOOD SUGAR DIAGNOSTIC STRIP TEST SCH (21:00)
[2025-01-09] MEDS ORDERED: LEVETIRACETAM 1000MG PREMIX 100 ML IV SCH (21:00)
[2025-01-09] MEDS: LEVETIRACETAM 500MG PREMIX 100 ML IV SCH (21:12)
[2025-01-09] MEDS: KCL 20MEQ/100ML PREMIX 100 ML IV NR (21:12)
[2025-01-09] MEDS: DEXT 5%/LACTATED RINGERS 1,000 ML IV SCH (21:13)
[2025-01-09] MEDS: BLOOD SUGAR DIAGNOSTIC STRIP TEST SCH (21:51)
[2025-01-09] MEDS: THIAMINE HCL 100 MG in SODIUM CHLORIDE 0.9% 49 ML IV NR (21:57)
[2025-01-09] MEDS: NICARDIPINE 100 MG in SODIUM CHLORIDE 0.9% 60 ML IV PRN (21:57)
[2025-01-09] MEDS: FOLIC ACID 1MG TABLET PO SCH (21:58)
[2025-01-09] MEDS: MULTIVITAMINS,THER W-MINERALS TABLET PO SCH (21:58)
[2025-01-10] VITALS (97 sets, daily range): BP systolic 96–146; BP diastolic 59–98; PULSE 82–134; RESP 11–36; TEMP 36.6–37.2; O2SAT 92–100
[2025-01-10] MEDS ORDERED: DEXAMETHASONE 4MG/ML 1ML VIAL IV SCH
[2025-01-10 05:15] LABS: BASOPHILS % 0.1 % (0.0-2.0); DIFFERENTIAL COMMENT 0; HEMOGLOBIN. 12.9 g/dL (14.0-18.0); LYMPHOCYTES % 9.7 % (20.0-50.0); MEAN CORPUSCULAR HEMOGLOBIN 30.8 pg (28.0-32.0); MEAN CORPUSCULAR HGB CONC 33.1 g/dL (31.0-37.0); MONOCYTES % 1.2 % (2.0-8.0); PLATELET 112 x1000/uL (130-400); RED CELL DISTRIBUTION WIDTH 17.3 % (11.6-14.6)
[2025-01-10 05:22] LABS: CHLORIDE 102 mEq/L (98-107); POTASSIUM 3.4 mEq/L (3.5-5.1); SODIUM 137 mEq/L (136-145)
[2025-01-10 05:23] LABS: CALCIUM 8.7 mg/dL (8.7-10.4); CARBON DIOXIDE 26 mEq/L (21-32)
[2025-01-10 05:28] LABS: CREATININE 0.9 mg/dL (0.6-1.3); GLUCOSE 268 mg/dL (70-105); UREA NITROGEN BLOOD 10 mg/dL (9-23)
[2025-01-10] MEDS ORDERED: POTASSIUM CHLORIDE 20 MEQ in DEXT 5% WATER 90 ML IV ONE (08:45)
[2025-01-10] MEDS ORDERED: DEXTROSE 50% WATER 50ML SYRINGE IV PRN (08:45)
[2025-01-10] MEDS: MAGNESIUM 1 G PREMIX 100 ML IV NR (09:07)
[2025-01-10] MEDS: PANTOPRAZOLE SODIUM 40 MG/VIAL IV SCH (09:08)
[2025-01-10] MEDS: KCL 20MEQ/100ML PREMIX 100 ML IV NR (09:08)
[2025-01-10] MEDS: BLOOD SUGAR DIAGNOSTIC STRIP TEST SCH (11:30)
[2025-01-10] MEDS: INSULIN LISPRO 100 UNITS/ML SUBCUT SCH (13:09)
[2025-01-10] MEDS: IOHEXOL-350 100 ML BOTTLE ONE (20:09)
[2025-01-10] MEDS ORDERED: FOLIC ACID 1MG TABLET PO SCH (21:00)
[2025-01-10] MEDS ORDERED: MULTIVITAMINS,THER W-MINERALS TABLET PO SCH (21:00)
[2025-01-11] VITALS (78 sets, daily range): BP systolic 112–167; BP diastolic 73–127; PULSE 90–137; RESP 12–32; TEMP 36.4–37.1; O2SAT 92–100
[2025-01-11 05:51] LABS: CHLORIDE 103 mEq/L (98-107); POTASSIUM 3.8 mEq/L (3.5-5.1); SODIUM 138 mEq/L (136-145)
[2025-01-11 05:52] LABS: HEMATOCRIT. 38.3 % (42.0-52.0); HEMOGLOBIN. 12.8 g/dL (14.0-18.0); MEAN CORPUSCULAR HGB CONC 33.5 g/dL (31.0-37.0); MEAN CORPUSCULAR VOLUME 92.5 fL (80.0-94.0); MEAN PLATELET VOLUME 8.4 fl (7.4-10.4); PLATELET 132 x1000/uL (130-400); RED BLOOD CELL COUNT 4.14 mill/uL (4.7-6.1); RED CELL DISTRIBUTION WIDTH 17.6 % (11.6-14.6); WHITE BLOOD COUNT 10.1 x1000/uL (4.5-11.0)
[2025-01-11 05:53] LABS: CALCIUM 8.6 mg/dL (8.7-10.4); CARBON DIOXIDE 24 mEq/L (21-32)
[2025-01-11 05:56] LABS: AMMONIA 52 uMol/L (<32)
[2025-01-11 05:58] LABS: CREATININE 0.9 mg/dL (0.6-1.3); GLUCOSE 222 mg/dL (70-105); UREA NITROGEN BLOOD 12 mg/dL (9-23)
[2025-01-11 06:00] LABS: ALANINE AMINOTRANSFERASE 26 IU/L (10-49); ALBUMIN 3.2 g/dL (3.2-4.8); ASPARTATE AMINOTRANSFERASE 50 IU/L (<34); BILIRUBIN DIRECT 0.6 mg/dL (<=3.0); BILIRUBIN TOTAL 1.5 mg/dL (0.1-1.0); PROTEIN TOTAL 7.2 g/dL (6.0-8.3)
[2025-01-11 06:13] LABS: HEPATITIS B SURFACE ANTIGEN NEGATIVE (Negative)
[2025-01-11 06:34] LABS: HEPATITIS A AB IGM NEGATIVE (Negative); HEPATITIS B CORE AB IGM NEGATIVE (Negative)
[2025-01-11 06:35] LABS: HEPATITIS C AB NON REACTIVE (Neg) (Negative)
[2025-01-11 07:29] LABS: DIFFERENTIAL COMMENT 1
[2025-01-11] MEDS ORDERED: LORAZEPAM 2MG/ML INJ IV PRN (08:45)
[2025-01-11] MEDS: LACTULOSE 20G/30ML UDC PO SCH (18:11)
[2025-01-12] VITALS (35 sets, daily range): BP systolic 108–158; BP diastolic 67–128; PULSE 75–125; RESP 12–26; TEMP 36.1–37; O2SAT 95–100
[2025-01-12 06:30] LABS: HEMOGLOBIN. 13.2 g/dL (14.0-18.0); MEAN CORPUSCULAR HEMOGLOBIN 31.1 pg (28.0-32.0); MEAN CORPUSCULAR HGB CONC 32.8 g/dL (31.0-37.0); MEAN CORPUSCULAR VOLUME 94.6 fL (80.0-94.0); MEAN PLATELET VOLUME 8.2 fl (7.4-10.4); PLATELET 125 x1000/uL (130-400); RED BLOOD CELL COUNT 4.23 mill/uL (4.7-6.1); RED CELL DISTRIBUTION WIDTH 16.9 % (11.6-14.6)
[2025-01-12 06:37] LABS: CHLORIDE 104 mEq/L (98-107); POTASSIUM 3.6 mEq/L (3.5-5.1); SODIUM 135 mEq/L (136-145)
[2025-01-12 06:38] LABS: CALCIUM 8.3 mg/dL (8.7-10.4); CARBON DIOXIDE 23 mEq/L (21-32)
[2025-01-12 06:43] LABS: CREATININE 0.8 mg/dL (0.6-1.3); DIFFERENTIAL COMMENT 1; GLUCOSE 224 mg/dL (70-105); UREA NITROGEN BLOOD 11 mg/dL (9-23)
[2025-01-12 06:44] LABS: ALANINE AMINOTRANSFERASE 40 IU/L (10-49); AMMONIA 20 uMol/L (<32)
[2025-01-12 06:45] LABS: ALBUMIN 3.2 g/dL (3.2-4.8); ASPARTATE AMINOTRANSFERASE 62 IU/L (<34); BILIRUBIN TOTAL 1.5 mg/dL (0.1-1.0); PROTEIN TOTAL 7.1 g/dL (6.0-8.3)
[2025-01-12 09:40] LABS: ANISOCYTOSIS 1+; PLATELET ESTIMATE NORMAL
[2025-01-12 10:18] LABS: ANISOCYTOSIS 1+; PLATELET ESTIMATE NORMAL
[2025-01-12] MEDS ORDERED: DEXTROSE 50% WATER 50ML SYRINGE IV PRN (18:15)
[2025-01-12] MEDS: INSULIN LISPRO 100 UNITS/ML SUBCUT NR (18:19)
[2025-01-12] MEDS: INSULIN LISPRO 100 UNITS/ML SUBCUT SCH (18:19)
[2025-01-13] VITALS (12 sets, daily range): BP systolic 102–142; BP diastolic 71–99; PULSE 84–124; RESP 12–20; TEMP 35.3–36.6; O2SAT 70–100
[2025-01-13 12:17] LABS: HEMATOCRIT. 38.3 % (42.0-52.0); HEMOGLOBIN. 12.6 g/dL (14.0-18.0); MEAN CORPUSCULAR HEMOGLOBIN 30.1 pg (28.0-32.0); MEAN CORPUSCULAR HGB CONC 32.9 g/dL (31.0-37.0); MEAN CORPUSCULAR VOLUME 91.7 fL (80.0-94.0); MEAN PLATELET VOLUME 8.5 fl (7.4-10.4); PLATELET 136 x1000/uL (130-400); RED BLOOD CELL COUNT 4.17 mill/uL (4.7-6.1); RED CELL DISTRIBUTION WIDTH 16.9 % (11.6-14.6); WHITE BLOOD COUNT 9.8 x1000/uL (4.5-11.0)
[2025-01-13 12:40] LABS: DIFFERENTIAL COMMENT 1
[2025-01-13 12:44] LABS: CHLORIDE 104 mEq/L (98-107); POTASSIUM 3.3 mEq/L (3.5-5.1); SODIUM 135 mEq/L (136-145)
[2025-01-13 12:45] LABS: CALCIUM 8.3 mg/dL (8.7-10.4); CARBON DIOXIDE 22 mEq/L (21-32)
[2025-01-13 12:50] LABS: GLUCOSE 311 mg/dL (70-105); UREA NITROGEN BLOOD 18 mg/dL (9-23)
[2025-01-13 12:52] LABS: ALANINE AMINOTRANSFERASE 53 IU/L (10-49); ALBUMIN 2.9 g/dL (3.2-4.8); AMMONIA 66 uMol/L (<32); ASPARTATE AMINOTRANSFERASE 53 IU/L (<34); BILIRUBIN TOTAL 1.2 mg/dL (0.1-1.0); PROTEIN TOTAL 6.6 g/dL (6.0-8.3)
[2025-01-13] MEDS: POTASSIUM CHLORIDE 20 MEQ in DEXT 5% WATER 90 ML IV NR (14:44)
[2025-01-13 18:54] LABS: PLATELET ESTIMATE NORMAL
[2025-01-13 18:55] LABS: ANISOCYTOSIS 1+
[2025-01-14] VITALS (13 sets, daily range): BP systolic 130–170; BP diastolic 88–134; PULSE 91–150; RESP 14–22; TEMP 36.4–36.7; O2SAT 97–99
[2025-01-14 11:29] LABS: HEMATOCRIT. 38.9 % (42.0-52.0); HEMOGLOBIN. 12.7 g/dL (14.0-18.0); MEAN CORPUSCULAR HEMOGLOBIN 30.2 pg (28.0-32.0); MEAN CORPUSCULAR HGB CONC 32.7 g/dL (31.0-37.0); MEAN CORPUSCULAR VOLUME 92.3 fL (80.0-94.0); MEAN PLATELET VOLUME 8.7 fl (7.4-10.4); PLATELET 144 x1000/uL (130-400); RED BLOOD CELL COUNT 4.22 mill/uL (4.7-6.1); RED CELL DISTRIBUTION WIDTH 17.2 % (11.6-14.6); WHITE BLOOD COUNT 9.7 x1000/uL (4.5-11.0)
[2025-01-14 11:30] LABS: DIFFERENTIAL COMMENT 1
[2025-01-14 11:37] LABS: CARBON DIOXIDE 23 mEq/L (21-32); CHLORIDE 101 mEq/L (98-107); POTASSIUM 3.8 mEq/L (3.5-5.1); SODIUM 135 mEq/L (136-145)
[2025-01-14 11:38] LABS: CALCIUM 8.8 mg/dL (8.7-10.4)
[2025-01-14 11:43] LABS: CREATININE 1.1 mg/dL (0.6-1.3); GLUCOSE 351 mg/dL (70-105); UREA NITROGEN BLOOD 22 mg/dL (9-23)
[2025-01-14 11:44] LABS: ALANINE AMINOTRANSFERASE 63 IU/L (10-49); ALBUMIN 3.2 g/dL (3.2-4.8); AMMONIA 35 uMol/L (<32); ASPARTATE AMINOTRANSFERASE 49 IU/L (<34)
[2025-01-14 11:45] LABS: BILIRUBIN TOTAL 1.3 mg/dL (0.1-1.0); PROTEIN TOTAL 6.9 g/dL (6.0-8.3)
[2025-01-14] MEDS: RISPERIDONE 0.5MG TABLET PO SCH (13:45)
[2025-01-14] MEDS: INSULIN GLARGINE 100 UNITS/ML SUBCUT NR (14:03)
[2025-01-14] MEDS: INSULIN GLARGINE 100 UNITS/ML SUBCUT SCH (21:27)
[2025-01-15] VITALS (10 sets, daily range): BP systolic 119–173; BP diastolic 73–116; PULSE 81–158; RESP 14–24; TEMP 35.7–37.2; O2SAT 95–99
[2025-01-15] MEDS: RISPERIDONE 0.5MG TABLET PO SCH (09:01)
[2025-01-15 13:22] LABS: CHLORIDE 103 mEq/L (98-107); POTASSIUM 3.2 mEq/L (3.5-5.1); SODIUM 136 mEq/L (136-145)
[2025-01-15 13:23] LABS: CALCIUM 8.8 mg/dL (8.7-10.4); CARBON DIOXIDE 20 mEq/L (21-32)
[2025-01-15 13:28] LABS: CREATININE 1.2 mg/dL (0.6-1.3); GLUCOSE 281 mg/dL (70-105); HEMATOCRIT. 39.8 % (42.0-52.0); HEMOGLOBIN. 12.8 g/dL (14.0-18.0); MEAN CORPUSCULAR HEMOGLOBIN 30.2 pg (28.0-32.0); MEAN CORPUSCULAR HGB CONC 32.2 g/dL (31.0-37.0); MEAN CORPUSCULAR VOLUME 93.9 fL (80.0-94.0); MEAN PLATELET VOLUME 8.7 fl (7.4-10.4); PLATELET 120 x1000/uL (130-400); RED BLOOD CELL COUNT 4.24 mill/uL (4.7-6.1); RED CELL DISTRIBUTION WIDTH 17.6 % (11.6-14.6); UREA NITROGEN BLOOD 21 mg/dL (9-23); WHITE BLOOD COUNT 11.1 x1000/uL (4.5-11.0)
[2025-01-15 13:30] LABS: ALANINE AMINOTRANSFERASE 67 IU/L (10-49); AMMONIA 93 uMol/L (<32); ASPARTATE AMINOTRANSFERASE 49 IU/L (<34)
[2025-01-15 13:31] LABS: BILIRUBIN TOTAL 1.3 mg/dL (0.1-1.0); DIFFERENTIAL COMMENT 1; PROTEIN TOTAL 6.6 g/dL (6.0-8.3)
[2025-01-15 19:25] LABS: ANISOCYTOSIS 1+; PLATELET ESTIMATE DECREASED
[2025-01-15] MEDS: POTASSIUM CHLORIDE 20MEQ TABLET SR PO NR (20:00)
[2025-01-15 23:59] LABS: PLATELET ESTIMATE NORMAL
[2025-01-16] VITALS: BP 128/86; PULSE 102; RESP 18; TEMP 35.9; O2SAT 98
[2025-01-16 04:00] VITALS: BP 131/76; PULSE 101; RESP 18; TEMP 36.5; O2SAT 97
[2025-01-16 05:38] LABS: AMMONIA 99 uMol/L (<32)
[2025-01-16 06:01] LABS: CHLORIDE 107 mEq/L (98-107); POTASSIUM 3.2 mEq/L (3.5-5.1); SODIUM 139 mEq/L (136-145)
[2025-01-16 06:02] LABS: CALCIUM 8.7 mg/dL (8.7-10.4); CARBON DIOXIDE 18 mEq/L (21-32)
[2025-01-16 06:07] LABS: CREATININE 1.1 mg/dL (0.6-1.3); UREA NITROGEN BLOOD 19 mg/dL (9-23)
[2025-01-16 06:09] LABS: ALANINE AMINOTRANSFERASE 91 IU/L (10-49); ALBUMIN 2.9 g/dL (3.2-4.8); ASPARTATE AMINOTRANSFERASE 81 IU/L (<34); PROTEIN TOTAL 6.5 g/dL (6.0-8.3)
[2025-01-16 06:17] LABS: GLUCOSE 123 mg/dL (70-105)
[2025-01-16 08:00] VITALS: BP 128/72; PULSE 82; RESP 19; TEMP 36.5; O2SAT 98
[2025-01-16 12:00] VITALS: BP 111/62; PULSE 87; RESP 18; TEMP 36.3; O2SAT 98
[2025-01-16 16:00] VITALS: BP 162/63; PULSE 103; RESP 18; TEMP 36.4; O2SAT 97
[2025-01-16 20:00] VITALS: BP 121/71; PULSE 114; RESP 18; TEMP 37.1; O2SAT 97
[2025-01-17] VITALS (7 sets, daily range): BP systolic 121–140; BP diastolic 65–87; PULSE 96–119; RESP 18–19; TEMP 36.1–36.8; O2SAT 96–98
[2025-01-17 07:25] LABS: HEMATOCRIT. 39.1 % (42.0-52.0); MEAN CORPUSCULAR HEMOGLOBIN 30.5 pg (28.0-32.0); MEAN CORPUSCULAR HGB CONC 33.2 g/dL (31.0-37.0); MEAN PLATELET VOLUME 8.4 fl (7.4-10.4); PLATELET 114 x1000/uL (130-400); RED BLOOD CELL COUNT 4.25 mill/uL (4.7-6.1); RED CELL DISTRIBUTION WIDTH 17.4 % (11.6-14.6)
[2025-01-17 07:39] LABS: CHLORIDE 108 mEq/L (98-107); DIFFERENTIAL COMMENT 1; POTASSIUM 3.5 mEq/L (3.5-5.1); SODIUM 139 mEq/L (136-145)
[2025-01-17 07:40] LABS: CARBON DIOXIDE 20 mEq/L (21-32)
[2025-01-17 07:41] LABS: CALCIUM 8.4 mg/dL (8.7-10.4)
[2025-01-17 07:45] LABS: ALANINE AMINOTRANSFERASE 83 IU/L (10-49); GLUCOSE 186 mg/dL (70-105)
[2025-01-17 07:46] LABS: AMMONIA 83 uMol/L (<32); ASPARTATE AMINOTRANSFERASE 51 IU/L (<34); UREA NITROGEN BLOOD 16 mg/dL (9-23)
[2025-01-17 07:47] LABS: ALBUMIN 2.9 g/dL (3.2-4.8)
[2025-01-17 07:48] LABS: BILIRUBIN TOTAL 1.4 mg/dL (0.1-1.0); PROTEIN TOTAL 6.3 g/dL (6.0-8.3)
[2025-01-17 17:36] LABS: PLATELET ESTIMATE DECREASED
[2025-01-17] MEDS: RIFAXIMIN 550 MG TABLET PO SCH (22:06)
[2025-01-17] MEDS: LEVETIRACETAM 500MG TABLET PO SCH (22:07)
[2025-01-18] VITALS: BP 118/72; PULSE 108; RESP 19; TEMP 36.5; O2SAT 100
[2025-01-18 04:00] VITALS: BP 129/66; PULSE 86; RESP 17; TEMP 36.3; O2SAT 99
[2025-01-18] MEDS: PANTOPRAZOLE 40MG DR TABLET PO SCH (06:49)
[2025-01-18] MEDS: LACTULOSE 20G/30ML UDC PO SCH (06:49)
[2025-01-18 08:00] VITALS: BP 111/63; PULSE 96; RESP 18; TEMP 35.9; O2SAT 98
[2025-01-18 12:00] VITALS: BP 113/66; PULSE 86; RESP 18; TEMP 36.6; O2SAT 100
[2025-01-18 16:00] VITALS: BP 112/57; PULSE 70; RESP 18; TEMP 36; O2SAT 97
[2025-01-18 20:00] VITALS: BP 110/71; PULSE 96; RESP 17; TEMP 36.7; O2SAT 96
[2025-01-19] VITALS: BP 129/72; PULSE 86; RESP 20; TEMP 36.9; O2SAT 95
[2025-01-19 04:00] VITALS: BP 112/71; PULSE 102; RESP 18; TEMP 36.4; O2SAT 98
[2025-01-19 07:02] LABS: CHLORIDE 104 mEq/L (98-107); POTASSIUM 3.7 mEq/L (3.5-5.1); SODIUM 141 mEq/L (136-145)
[2025-01-19 07:03] LABS: CARBON DIOXIDE 25 mEq/L (21-32)
[2025-01-19 07:04] LABS: CALCIUM 8.7 mg/dL (8.7-10.4)
[2025-01-19 07:08] LABS: CREATININE 0.9 mg/dL (0.6-1.3); GLUCOSE 162 mg/dL (70-105)
[2025-01-19 07:10] LABS: ALANINE AMINOTRANSFERASE 86 IU/L (10-49); ASPARTATE AMINOTRANSFERASE 56 IU/L (<34)
[2025-01-19 07:11] LABS: BILIRUBIN DIRECT 0.7 mg/dL (<=3.0); BILIRUBIN TOTAL 1.9 mg/dL (0.1-1.0); PROTEIN TOTAL 6.2 g/dL (6.0-8.3)
[2025-01-19 07:19] LABS: UREA NITROGEN BLOOD 11 mg/dL (9-23)
[2025-01-19 07:29] LABS: AMMONIA 34 uMol/L (<32)
[2025-01-19 07:44] LABS: HEMATOCRIT. 39.9 % (42.0-52.0); HEMOGLOBIN. 13.3 g/dL (14.0-18.0); MEAN CORPUSCULAR HEMOGLOBIN 30.9 pg (28.0-32.0); MEAN CORPUSCULAR HGB CONC 33.4 g/dL (31.0-37.0); MEAN CORPUSCULAR VOLUME 92.6 fL (80.0-94.0); MEAN PLATELET VOLUME 8.6 fl (7.4-10.4); PLATELET 119 x1000/uL (130-400); RED CELL DISTRIBUTION WIDTH 16.7 % (11.6-14.6)
[2025-01-19 08:00] VITALS: BP 119/71; PULSE 119; RESP 19; TEMP 36.6; O2SAT 99
[2025-01-19 09:05] LABS: DIFFERENTIAL COMMENT 1
[2025-01-19 12:00] VITALS: BP 104/62; PULSE 96; RESP 17; TEMP 36.3; O2SAT 93
[2025-01-19 16:00] VITALS: BP 112/58; PULSE 100; RESP 19; TEMP 36.4; O2SAT 99
[2025-01-19] MEDS: MAGNESIUM 2 G PREMIX 50 ML IV SCH (16:00)
[2025-01-19 18:41] LABS: PLATELET ESTIMATE NORMAL
[2025-01-19] MEDS: ACETAMINOPHEN 325MG TABLET PO PRN (19:52)
[2025-01-19 20:00] VITALS: BP 105/56; PULSE 109; RESP 16; TEMP 36.3; O2SAT 100
[2025-01-20] VITALS: BP 110/70; PULSE 97; RESP 18; TEMP 36.6; O2SAT 100
[2025-01-20 04:00] VITALS: BP 97/57; PULSE 102; RESP 18; TEMP 36.8; O2SAT 99
[2025-01-20 08:00] VITALS: BP 99/61; PULSE 113; RESP 17; TEMP 36.6; O2SAT 96
[2025-01-20 12:00] VITALS: BP 97/57; PULSE 108; RESP 18; TEMP 36.1; O2SAT 100
[2025-01-20 16:00] VITALS: BP 105/68; PULSE 106; RESP 17; TEMP 36.7; O2SAT 96
[2025-01-20 20:00] VITALS: BP 127/74; PULSE 109; RESP 20; TEMP 37.7; O2SAT 100
[2025-01-20] MEDS: CARVEDILOL 3.125 MG TABLET PO SCH (21:00)
[2025-01-20] MEDS: INSULIN GLARGINE 100 UNITS/ML SUBCUT SCH (21:06)
[2025-01-21] VITALS: BP_SYST 111; BP_SYST 113; BP_DIAS 59; BP_DIAS 72; PULSE 116; RESP 20; TEMP 38.1; O2SAT 98
[2025-01-21 07:45] LABS: AMMONIA 86 uMol/L (<32)
[2025-01-21 07:56] LABS: HEMATOCRIT. 36.7 % (42.0-52.0); HEMOGLOBIN. 12.1 g/dL (14.0-18.0); MEAN CORPUSCULAR HEMOGLOBIN 30.7 pg (28.0-32.0); MEAN PLATELET VOLUME 8.6 fl (7.4-10.4); PLATELET 115 x1000/uL (130-400); RED BLOOD CELL COUNT 3.95 mill/uL (4.7-6.1); WHITE BLOOD COUNT 9.2 x1000/uL (4.5-11.0)
[2025-01-21 08:00] VITALS: BP 109/80; PULSE 110; RESP 17; TEMP 36.6; O2SAT 99
[2025-01-21 08:16] LABS: DIFFERENTIAL COMMENT 1
[2025-01-21 08:19] LABS: CARBON DIOXIDE 24 mEq/L (21-32); CHLORIDE 106 mEq/L (98-107); POTASSIUM 3.8 mEq/L (3.5-5.1); SODIUM 139 mEq/L (136-145)
[2025-01-21 08:20] LABS: CALCIUM 8.3 mg/dL (8.7-10.4)
[2025-01-21 08:25] LABS: GLUCOSE 145 mg/dL (70-105); UREA NITROGEN BLOOD 16 mg/dL (9-23)
[2025-01-21 12:00] VITALS: BP 111/66; PULSE 107; RESP 16; TEMP 36.5; O2SAT 100
[2025-01-21 15:58] LABS: ANISOCYTOSIS 1+; PLATELET ESTIMATE DECREASED
[2025-01-21 16:00] VITALS: BP 115/69; PULSE 110; RESP 18; TEMP 36.4; O2SAT 98
[2025-01-21] MEDS: MAGNESIUM 4 G PREMIX 100 ML IV NR (16:22)
[2025-01-21 20:00] VITALS: BP 112/70; PULSE 109; RESP 18; TEMP 37.6; O2SAT 100
[2025-01-22] VITALS: BP 125/79; PULSE 116; RESP 20; TEMP 36.6; O2SAT 98
[2025-01-22 04:00] VITALS: BP 120/75; PULSE 96; RESP 17; TEMP 36.6; O2SAT 97
[2025-01-22 07:09] LABS: BASOPHILS % 0.2 % (0.0-2.0); EOSINOPHILS % 5.7 % (0.0-5.0); HEMATOCRIT. 38.8 % (42.0-52.0); HEMOGLOBIN. 12.6 g/dL (14.0-18.0); LYMPHOCYTES % 7.8 % (20.0-50.0); MEAN CORPUSCULAR HGB CONC 32.4 g/dL (31.0-37.0); MEAN CORPUSCULAR VOLUME 95.7 fL (80.0-94.0); MEAN PLATELET VOLUME 8.5 fl (7.4-10.4); MONOCYTES % 14.5 % (2.0-8.0); NEUTROPHILS % 71.8 % (40.0-76.0); PLATELET 111 x1000/uL (130-400); RED BLOOD CELL COUNT 4.06 mill/uL (4.7-6.1); WHITE BLOOD COUNT 11.3 x1000/uL (4.5-11.0)
[2025-01-22 07:28] LABS: CARBON DIOXIDE 21 mEq/L (21-32); CHLORIDE 108 mEq/L (98-107); SODIUM 140 mEq/L (136-145)
[2025-01-22 07:29] LABS: CALCIUM 8.2 mg/dL (8.7-10.4)
[2025-01-22 07:33] LABS: GLUCOSE 114 mg/dL (70-105)
[2025-01-22 07:34] LABS: UREA NITROGEN BLOOD 13 mg/dL (9-23)
[2025-01-22 08:00] VITALS: BP 116/70; PULSE 96; RESP 17; TEMP 36.3; O2SAT 100
[2025-01-22 09:42] LABS: AMMONIA 128 uMol/L (<32)
[2025-01-22 12:00] VITALS: BP 103/67; PULSE 81; RESP 18; TEMP 35.9; O2SAT 98
[2025-01-22] MEDS: LACTULOSE 20G/30ML UDC PO SCH (14:07)
[2025-01-22 16:00] VITALS: BP 111/74; PULSE 69; RESP 17; TEMP 36.7; O2SAT 96
[2025-01-22 20:00] VITALS: BP 110/62; PULSE 101; RESP 19; TEMP 36.6; O2SAT 100
[2025-01-23] VITALS: BP 100/66; PULSE 98; RESP 19; TEMP 36.1; O2SAT 96
[2025-01-23 04:00] VITALS: BP 105/57; PULSE 99; RESP 20; TEMP 36.7; O2SAT 98
[2025-01-23 07:36] LABS: HEMATOCRIT. 34.9 % (42.0-52.0); HEMOGLOBIN. 11.7 g/dL (14.0-18.0); MEAN CORPUSCULAR HGB CONC 33.4 g/dL (31.0-37.0); MEAN CORPUSCULAR VOLUME 92.9 fL (80.0-94.0); MEAN PLATELET VOLUME 8.4 fl (7.4-10.4); PLATELET 123 x1000/uL (130-400); RED BLOOD CELL COUNT 3.75 mill/uL (4.7-6.1); RED CELL DISTRIBUTION WIDTH 16.5 % (11.6-14.6); WHITE BLOOD COUNT 10.1 x1000/uL (4.5-11.0)
[2025-01-23 07:39] LABS: CHLORIDE 107 mEq/L (98-107); SODIUM 138 mEq/L (136-145)
[2025-01-23 07:42] LABS: CARBON DIOXIDE 23 mEq/L (21-32)
[2025-01-23 07:43] LABS: CALCIUM 8.2 mg/dL (8.7-10.4)
[2025-01-23 07:45] LABS: AMMONIA 96 uMol/L (<32)
[2025-01-23 07:47] LABS: CREATININE 0.9 mg/dL (0.6-1.3)
[2025-01-23 07:48] LABS: ALANINE AMINOTRANSFERASE 56 IU/L (10-49); GLUCOSE 150 mg/dL (70-105); UREA NITROGEN BLOOD 15 mg/dL (9-23)
[2025-01-23 07:49] LABS: ALBUMIN 2.6 g/dL (3.2-4.8); ASPARTATE AMINOTRANSFERASE 40 IU/L (<34)
[2025-01-23 07:50] LABS: BILIRUBIN DIRECT 0.3 mg/dL (<=3.0); BILIRUBIN TOTAL 0.8 mg/dL (0.1-1.0); PROTEIN TOTAL 5.5 g/dL (6.0-8.3)
[2025-01-23 08:00] VITALS: BP 108/55; PULSE 16; RESP 16; TEMP 35.9; O2SAT 97
[2025-01-23 08:10] LABS: DIFFERENTIAL COMMENT 1
[2025-01-23] MEDS: RIFAXIMIN 550 MG TABLET PO SCH (09:17)
[2025-01-23 11:39] LABS: ANISOCYTOSIS 1+; PLATELET ESTIMATE NORMAL
[2025-01-23 12:00] VITALS: BP 107/67; PULSE 94; RESP 18; TEMP 36.6; O2SAT 98
[2025-01-23 16:00] VITALS: BP 96/47; PULSE 95; RESP 16; TEMP 35.9; O2SAT 97
[2025-01-23] MEDS: MAGNESIUM 1 G PREMIX 100 ML IV NR (17:04)
[2025-01-23 20:00] VITALS: BP 114/71; PULSE 99; RESP 19; TEMP 36.7; O2SAT 98
[2025-01-24] VITALS: BP 114/70; PULSE 99; RESP 18; TEMP 36.7; O2SAT 97
[2025-01-24 04:00] VITALS: BP 95/66; PULSE 93; RESP 18; TEMP 36.4; O2SAT 95
[2025-01-24 07:26] LABS: CARBON DIOXIDE 20 mEq/L (21-32); CHLORIDE 111 mEq/L (98-107); POTASSIUM 3.4 mEq/L (3.5-5.1); SODIUM 140 mEq/L (136-145)
[2025-01-24 07:32] LABS: CREATININE 0.9 mg/dL (0.6-1.3); GLUCOSE 127 mg/dL (70-105); UREA NITROGEN BLOOD 13 mg/dL (9-23)
[2025-01-24 07:34] LABS: AMMONIA 48 uMol/L (<32)
[2025-01-24 07:44] LABS: HEMATOCRIT. 37.2 % (42.0-52.0); HEMOGLOBIN. 12.1 g/dL (14.0-18.0); MEAN CORPUSCULAR HGB CONC 32.6 g/dL (31.0-37.0); MEAN CORPUSCULAR VOLUME 95.1 fL (80.0-94.0); MEAN PLATELET VOLUME 8.6 fl (7.4-10.4); PLATELET 123 x1000/uL (130-400); RED BLOOD CELL COUNT 3.91 mill/uL (4.7-6.1)
[2025-01-24 08:00] VITALS: BP 96/65; PULSE 60; RESP 19; TEMP 36.7; O2SAT 96
[2025-01-24 08:14] LABS: DIFFERENTIAL COMMENT 1
[2025-01-24 12:00] VITALS: BP 90/48; PULSE 19; RESP 19; TEMP 36.7; O2SAT 100
[2025-01-24 14:39] LABS: PLATELET ESTIMATE DECREASED
[2025-01-24 14:40] LABS: ANISOCYTOSIS 1+
[2025-01-24 16:00] VITALS: BP 96/60; PULSE 96; RESP 19; TEMP 36.8; O2SAT 97
[2025-01-24 18:18] VITALS: BP 96/60; PULSE 96; TEMP 98.2; O2SAT 97
== END 2025-01-24 18:49 | DRG 44 ==
LOC: ER 14:49 → EDBEDREQ 17:31 → EDBEDREQSVC 17:31 → EDBEDREQTM 17:31 → MICUNO 20:18 → 5EST 01-12 14:00 → 6EST 01-15 10:43
PROVIDERS: ADMIT Internal Medicine; ATTEND Internal Medicine
DX: I61.5 Nontraumatic intracerebral hemorrhage, intraventricular (principal); I21.4 Non-ST elevation (NSTEMI) myocardial infarction; G93.6 Cerebral edema; D69.6 Thrombocytopenia, unspecified; K76.6 Portal hypertension; G81.91 Hemiplegia, unspecified affecting right dominant side; F03.90 Unspecified dementia, unspecified severity, without behavioral disturbance, psychotic disturbance, mood disturbance, and anxiety; E11.9 Type 2 diabetes mellitus without complications; F10.229 Alcohol dependence with intoxication, unspecified; F10.239 Alcohol dependence with withdrawal, unspecified; E87.6 Hypokalemia; E83.42 Hypomagnesemia; K70.30 Alcoholic cirrhosis of liver without ascites; R47.1 Dysarthria and anarthria; K29.50 Unspecified chronic gastritis without bleeding; K31.89 Other diseases of stomach and duodenum; R00.0 Tachycardia, unspecified
CPT/HCPCS: 36415; 70496; 70498; 71045; 76700; 80048; 80053; 80076; 80320; 82105; 82140; 82962; 83036; 83735; 84100; 84484; 85025; 85384; 86705; 86709; 86850; 86900; 87340; 92610; 93005; 93970; 97110; 97163; 97167; 99291; A4606; A6261; C1893; J1100; J1815; J1953; J2150; J2470; J3411; J3475; J3480; J3490; J7060; J7070; Q9967; G0480

== ENCOUNTER 2025-04-07 18:53 | Inpatient (IN) | payer MEDICAID, OTHER ==
[~2025-04-07] VITALS: Ht 165.1 cm; Wt 55.8 kg
[2025-04-07] MEDS: SODIUM CHLORIDE 0.9% 1,000 ML IV ONE (22:41)
[2025-04-07 22:53] LABS: HEMATOCRIT. 34.8 % (42.0-52.0); HEMOGLOBIN. 11.9 g/dL (14.0-18.0); MEAN CORPUSCULAR HEMOGLOBIN 32.1 pg (28.0-32.0); MEAN CORPUSCULAR HGB CONC 34.2 g/dL (31.0-37.0); MEAN CORPUSCULAR VOLUME 93.9 fL (80.0-94.0); MEAN PLATELET VOLUME 8.2 fl (7.4-10.4); PLATELET 207 x1000/uL (130-400); RED CELL DISTRIBUTION WIDTH 14.2 % (11.6-14.6); WHITE BLOOD COUNT 11.1 x1000/uL (4.5-11.0)
[2025-04-07 22:54] LABS: DIFFERENTIAL COMMENT 1
[2025-04-07 23:01] LABS: CARBON DIOXIDE 26 mEq/L (21-32); CHLORIDE 104 mEq/L (98-107); POTASSIUM 3.9 mEq/L (3.5-5.1); SODIUM 139 mEq/L (136-145)
[2025-04-07 23:02] LABS: CALCIUM 9.8 mg/dL (8.7-10.4)
[2025-04-07 23:06] LABS: GLUCOSE 194 mg/dL (70-105)
[2025-04-07 23:07] LABS: ETHANOL BLOOD < 10 mg/dL (<10); INR 1.1; PROTHROMBIN TIME 11.9 sec (9.6-11.0); UREA NITROGEN BLOOD 17 mg/dL (9-23)
[2025-04-07 23:09] LABS: CREATININE 1.4 mg/dL (0.6-1.3); PHOSPHORUS 2.6 mg/dL (2.5-4.9)
[2025-04-07 23:12] LABS: PLATELET ESTIMATE NORMAL
[2025-04-07] MEDS: CEFTRIAXONE 1GM/50ML 50 ML IV ONE (23:54)
[2025-04-08] VITALS (7 sets, daily range): BP systolic 111–131; BP diastolic 66–79; PULSE 87–100; RESP 20; TEMP 36.3–37; O2SAT 97–100
[2025-04-08] MEDS ORDERED: ONDA4TAB50 PO (03:16)
[2025-04-08] MEDS ORDERED: LANTUSUD SUBCUT (03:16)
[2025-04-08] MEDS ORDERED: LEVE500T19 PO (03:16)
[2025-04-08] MEDS ORDERED: INSLIS SUBCUT (03:16)
[2025-04-08] MEDS ORDERED: TOPUD MT (03:18)
[2025-04-08] MEDS ORDERED: MULT-647 PO (03:52)
[2025-04-08] MEDS ORDERED: MAGN24002 PO (03:52)
[2025-04-08] MEDS ORDERED: DOCU-138 PO (03:52)
[2025-04-08] MEDS ORDERED: FEO RC (03:52)
[2025-04-08] MEDS ORDERED: BISA-186 RC (03:52)
[2025-04-08] MEDS ORDERED: AMIN960L13 PO (03:52)
[2025-04-08] MEDS ORDERED: LACT10SO81 MT (03:52)
[2025-04-08] MEDS ORDERED: SENN-362 PO (03:53)
[2025-04-08] MEDS ORDERED: DEXTROSE 50% WATER 50ML SYRINGE IV PRN (04:15)
[2025-04-08] MEDS: BLOOD SUGAR DIAGNOSTIC STRIP TEST SCH (06:57)
[2025-04-08] MEDS: FOLIC ACID 1MG TABLET PO SCH (09:25)
[2025-04-08] MEDS: PANTOPRAZOLE 40MG DR TABLET PO SCH (09:25)
[2025-04-08] MEDS: INSULIN LISPRO 100 UNITS/ML SUBCUT SCH (09:25)
[2025-04-08] MEDS: CARVEDILOL 3.125 MG TABLET PO SCH (09:26)
[2025-04-08] MEDS: DOCUSATE SODIUM 100MG CAPSULE PO SCH (09:26)
[2025-04-08] MEDS: LEVETIRACETAM 500MG TABLET PO SCH (09:26)
[2025-04-08] MEDS: INSULIN GLARGINE 100 UNITS/ML SUBCUT SCH (09:42)
[2025-04-08 10:50] LABS: HEMATOCRIT. 35.5 % (42.0-52.0); HEMOGLOBIN. 12.2 g/dL (14.0-18.0); MEAN CORPUSCULAR HEMOGLOBIN 32.2 pg (28.0-32.0); MEAN CORPUSCULAR HGB CONC 34.5 g/dL (31.0-37.0); MEAN CORPUSCULAR VOLUME 93.4 fL (80.0-94.0); MEAN PLATELET VOLUME 7.8 fl (7.4-10.4); PLATELET 165 x1000/uL (130-400); RED CELL DISTRIBUTION WIDTH 14.1 % (11.6-14.6); WHITE BLOOD COUNT 8.5 x1000/uL (4.5-11.0)
[2025-04-08 10:53] LABS: DIFFERENTIAL COMMENT 1
[2025-04-08 11:04] LABS: CALCIUM 8.8 mg/dL (8.7-10.4); CARBON DIOXIDE 23 mEq/L (21-32); CHLORIDE 104 mEq/L (98-107); POTASSIUM 3.8 mEq/L (3.5-5.1); SODIUM 138 mEq/L (136-145)
[2025-04-08 11:10] LABS: CREATININE 0.9 mg/dL (0.6-1.3); GLUCOSE 207 mg/dL (70-105); UREA NITROGEN BLOOD 12 mg/dL (9-23)
[2025-04-08 18:31] LABS: CLARITY URINE CLEAR (CLEAR); COLOR URINE YELLOW (YELLOW); GLUCOSE URINE NEGATIVE (NEGATIVE); KETONES URINE NEGATIVE (NEGATIVE); LEUKOCYTE ESTERASE URINE TRACE (NEGATIVE); NITRITE URINE NEGATIVE (NEGATIVE); OCCULT BLOOD URINE NEGATIVE (NEGATIVE); PH URINE 6.5 (4.5-8.0); PROTEIN URINE 1+ (NEGATIVE); SPECIFIC GRAVITY URINE 1.016 (1.005-1.030)
[2025-04-08] MEDS: ENOXAPARIN 40MG/0.4ML SYR SUBCUT SCH (19:01)
[2025-04-08 20:14] LABS: BACTERIA URINE TRACE; RBC URINE NONE SEEN /hpf (0-2); SQUAMOUS EPITHELIAL CELL URINE FEW /lpf (RARE/1+); WBC URINE 0-2 /hpf (0-2)
[2025-04-08 21:11] LABS: GIANT PLATELETS FEW; PLATELET ESTIMATE NORMAL
[2025-04-08] MEDS: SENNOSIDES 8.6MG TABLET PO SCH (21:14)
[2025-04-08 22:16] LABS: AMMONIA 86 uMol/L (<32)
[2025-04-09] VITALS: BP_SYST 118; BP_SYST 122; BP_DIAS 71; BP_DIAS 73; PULSE 72; PULSE 87; RESP 18; RESP 20; TEMP 36.9; TEMP 37; O2SAT 98
[2025-04-09 04:00] VITALS: BP 131/81; PULSE 109; RESP 18; TEMP 36.7; O2SAT 98
[2025-04-09 06:43] LABS: HEMATOCRIT. 35.7 % (42.0-52.0); HEMOGLOBIN. 12.3 g/dL (14.0-18.0); MEAN CORPUSCULAR HEMOGLOBIN 32.2 pg (28.0-32.0); MEAN CORPUSCULAR HGB CONC 34.4 g/dL (31.0-37.0); MEAN CORPUSCULAR VOLUME 93.5 fL (80.0-94.0); MEAN PLATELET VOLUME 7.9 fl (7.4-10.4); PLATELET 181 x1000/uL (130-400); RED BLOOD CELL COUNT 3.82 mill/uL (4.7-6.1); RED CELL DISTRIBUTION WIDTH 13.9 % (11.6-14.6); WHITE BLOOD COUNT 8.9 x1000/uL (4.5-11.0)
[2025-04-09 06:52] LABS: DIFFERENTIAL COMMENT 1
[2025-04-09 08:02] VITALS: BP 121/80; PULSE 113; RESP 20; TEMP 36.1; O2SAT 98
[2025-04-09 12:09] VITALS: BP 104/88; PULSE 90; RESP 20; TEMP 36.4; O2SAT 93
[2025-04-09] MEDS: LACTULOSE 20G/30ML UDC PO SCH (13:25)
[2025-04-09 15:27] LABS: PLATELET ESTIMATE NORMAL
[2025-04-09 16:28] VITALS: BP 102/62; PULSE 103; RESP 20; TEMP 37.1; O2SAT 97
[2025-04-09 20:00] VITALS: BP 116/69; PULSE 96; RESP 18; TEMP 37.4; O2SAT 97
[2025-04-10] VITALS: BP 103/62; PULSE 93; RESP 18; TEMP 37.4; O2SAT 97
[2025-04-10 04:00] VITALS: BP 104/68; PULSE 85; RESP 18; TEMP 37.1; O2SAT 98
[2025-04-10 06:05] LABS: AMMONIA 41 uMol/L (<32)
[2025-04-10 12:27] VITALS: BP 126/87; PULSE 102; RESP 20; TEMP 36.6; O2SAT 96
[2025-04-10 16:31] VITALS: BP 107/58; PULSE 93; RESP 20; TEMP 37; O2SAT 97
[2025-04-10 17:36] LABS: HEMATOCRIT. 34.9 % (42.0-52.0); HEMOGLOBIN. 11.9 g/dL (14.0-18.0); MEAN CORPUSCULAR VOLUME 94.1 fL (80.0-94.0); MEAN PLATELET VOLUME 8.2 fl (7.4-10.4); PLATELET 190 x1000/uL (130-400); RED BLOOD CELL COUNT 3.71 mill/uL (4.7-6.1); RED CELL DISTRIBUTION WIDTH 13.9 % (11.6-14.6); WHITE BLOOD COUNT 8.1 x1000/uL (4.5-11.0)
[2025-04-10 17:37] LABS: DIFFERENTIAL COMMENT 1
[2025-04-10 17:46] LABS: CHLORIDE 107 mEq/L (98-107); POTASSIUM 3.7 mEq/L (3.5-5.1); SODIUM 142 mEq/L (136-145)
[2025-04-10 17:47] LABS: CALCIUM 9.2 mg/dL (8.7-10.4); CARBON DIOXIDE 23 mEq/L (21-32)
[2025-04-10 17:52] LABS: GLUCOSE 174 mg/dL (70-105); UREA NITROGEN BLOOD 14 mg/dL (9-23)
[2025-04-10 18:08] LABS: PLATELET ESTIMATE NORMAL
[2025-04-10 20:00] VITALS: BP 116/64; PULSE 88; RESP 18; TEMP 37.1; O2SAT 99
[2025-04-11] VITALS: BP 111/62; PULSE 93; RESP 18; TEMP 37.2; O2SAT 97
[2025-04-11 03:51] VITALS: BP 95/53; PULSE 107; RESP 18; TEMP 37.6; O2SAT 98
[2025-04-11 08:00] VITALS: BP 108/65; PULSE 88; RESP 19; TEMP 36.9; O2SAT 97
[2025-04-11 12:00] VITALS: BP 125/83; PULSE 97; RESP 20; TEMP 36.8; TEMP 36.9; O2SAT 98
[2025-04-11 15:29] VITALS: BP 114/53; PULSE 84; TEMP 98.6; O2SAT 98
[2025-04-11 16:00] VITALS: BP_SYST 114; BP_DIAS 53; BP_DIAS 63; PULSE 84; PULSE 94; RESP 19; RESP 20; TEMP 37; O2SAT 100; O2SAT 97
== END 2025-04-11 19:07 | DRG 52 ==
LOC: ER 18:53 → 7WST 04-08 00:40 → ENRESERV 04-08 01:28
PROVIDERS: ADMIT Internal Medicine; ATTEND Internal Medicine
DX: G93.41 Metabolic encephalopathy (principal); F03.90 Unspecified dementia, unspecified severity, without behavioral disturbance, psychotic disturbance, mood disturbance, and anxiety; K74.60 Unspecified cirrhosis of liver; E11.9 Type 2 diabetes mellitus without complications; D64.9 Anemia, unspecified; K21.9 Gastro-esophageal reflux disease without esophagitis; Z86.73 Personal history of transient ischemic attack (TIA), and cerebral infarction without residual deficits; Z88.8 Allergy status to other drugs, medicaments and biological substances; Z79.84 Long term (current) use of oral hypoglycemic drugs
CPT/HCPCS: 36415; 71045; 80048; 80320; 81003; 82140; 82962; 83036; 83605; 83735; 84100; 84145; 85025; 93005; 99291; J0696; J1650; J1815; J7030; G0480